=== PATIENT | male | born 1960 | race Two or more races ===

== ENCOUNTER 2022-10-06 10:47 | Outpatient (REF) | payer OTHER, SELFPAY ==
[2022-10-06 11:08] LABS: MANUAL DIFF FLAG NO
[2022-10-06 11:43] LABS: Basophils Percent Auto 0.2 % (0-2); Eosinophils Absolute Auto 0.2 X10*3/uL (0.0-0.4); Eosinophils Percent Auto 4.3 % (0-4); Hematocrit 41.6 % (42.0-52.0); Hemoglobin 13.7 g/dl (14.0-18.0); Imm Gran Abs Auto 0.05 X10*3/uL (0.00-0.03); Imm Gran Pct Auto 0.9 % (0.0-0.4); Lymphocytes Absolute Auto 2.1 X10*3/uL (1.2-4.9); Lymphocytes Percent Auto 36.9 % (20-40); Mean Corpuscular HGB Conc 32.9 g/dl (31.0-36.0); Mean Corpuscular Hemoglobin 30.4 pg (27.0-33.0); Mean Corpuscular Volume 92.4 fL (80.0-98.0); Mean Platelet Volume 11.9 fL (9.4-12.4); Monocytes Absolute Auto 0.5 X10*3/uL (0.1-1.2); Monocytes Percent Auto 9.2 % (2-11); Neutrophils Absolute Auto 2.7 x10*3/uL (2.0-8.3); Neutrophils Percent Auto 48.5 % (45-73); Platelet Count 202 X10*3/uL (160-400); Red Cell Distribution Width 11.9 % (11.0-16.0); White Blood Count 5.6 X10*3/uL (4.8-10.8)
[2022-10-06 11:49] LABS: Estimated Average Glucose 134 mg/dL; Hemoglobin A1c % 6.3 %
[2022-10-06 12:33] LABS: Appearance Urine Clear; Color Urine Yellow; Glucose Urine UA Negative (Negative); Leukocyte Esterase Urine Negative (Negative); Nitrite Urine Negative (Negative); Specific Gravity - Urine 1.015 (1.005-1.025); Urine Blood Negative (Negative); Urine Ketones Negative (Negative); Urine Protein Trace mg/dL (Neg-Trace)
[2022-10-06 13:17] LABS: Creatinine Urine 69.19 mg/dL; Microalbum/Creatinine Ratio Ur 144.5 ug/mg cr
[2022-10-06 16:46] LABS: Alanine Aminotransferase 18 U/L (0-40); Albumin Level 4.4 g/dL (3.5-5.0); Alkaline Phosphatase 73 U/L (39-117); Anion Gap 16 (12-20); Aspartate Amino Transferase 25 U/L (5-37); Bilirubin Total 0.5 mg/dL (0.0-1.0); Blood Urea Nitrogen 17 mg/dL (9-16); Calcium 9.8 mg/dL (8.4-10.2); Carbon Dioxide 27 mmol/L (22-29); Chloride 99 mmol/L (96-108); Cholesterol 205 mg/dL; Estimated Glomerular Filt Rate > 60; Free T4 (Free Thyroxine) 0.84 ng/dL (0.71-1.85); Glucose Fasting 140 mg/dL (60-99); HDL Cholesterol 66 mg/dL; LDL Cholesterol Calculated 81 mg/dl; Sodium 137 mmol/L (135-145); Thyroid Stimulating Hormone 11.16 uIU/mL (0.32-4.0); Total Protein 6.9 g/dL (6.5-8.0); Triglycerides 290 mg/dL; Uric Acid 4.1 mg/dL (3.4-7.0); Vitamin D 25-OH Total 76.6 ng/mL (>30)
== END 2022-10-06 10:48 | disposition home or self-care (01) ==
LOC: HO.LAB 10:47
PROVIDERS: PCP Internal Medicine; Visit Provider Internal Medicine
DX: Z00.00 Encounter for general adult medical examination without abnormal findings (principal); Z12.5 Encounter for screening for malignant neoplasm of prostate; E11.9 Type 2 diabetes mellitus without complications; R30.0 Dysuria; M10.9 Gout, unspecified; E03.9 Hypothyroidism, unspecified; E78.00 Pure hypercholesterolemia, unspecified; E55.9 Vitamin D deficiency, unspecified
CPT/HCPCS: 36415; 80053; 80061; 81003; 82043; 82306; 83036; 84153; 84439; 84443; 84550; 85025

== ENCOUNTER 2023-04-12 12:42 | Outpatient (REF) | payer OTHER, SELFPAY ==
[2023-04-12 12:55] LABS: MANUAL DIFF FLAG NO
[2023-04-12 14:34] LABS: Basophils Percent Auto 0.5 % (0-2); Eosinophils Absolute Auto 0.2 X10*3/uL (0.0-0.4); Eosinophils Percent Auto 3.6 % (0-4); Hematocrit 43.5 % (42.0-52.0); Hemoglobin 14.3 g/dl (14.0-18.0); Imm Gran Abs Auto 0.01 X10*3/uL (0.00-0.03); Imm Gran Pct Auto 0.2 % (0.0-0.4); Lymphocytes Absolute Auto 1.4 X10*3/uL (1.2-4.9); Lymphocytes Percent Auto 24.4 % (20-40); Mean Corpuscular HGB Conc 32.9 g/dl (31.0-36.0); Mean Corpuscular Hemoglobin 29.9 pg (27.0-33.0); Mean Corpuscular Volume 90.8 fL (80.0-98.0); Mean Platelet Volume 13.4 fL (9.4-12.4); Monocytes Absolute Auto 0.4 X10*3/uL (0.1-1.2); Monocytes Percent Auto 7.3 % (2-11); Neutrophils Absolute Auto 3.8 x10*3/uL (2.0-8.3); Platelet Count 178 X10*3/uL (160-400); Red Blood Count 4.79 X10*6/uL (4.60-5.80); Red Cell Distribution Width 12.2 % (11.0-16.0); White Blood Count 5.9 X10*3/uL (4.8-10.8)
[2023-04-12 14:50] LABS: Appearance Urine Clear; Color Urine Yellow; Glucose Urine UA Negative (Negative); Leukocyte Esterase Urine Negative (Negative); Nitrite Urine Negative (Negative); Urine Blood Negative (Negative); Urine Ketones Negative (Negative); Urine Protein Trace mg/dL (Neg-Trace)
[2023-04-12 14:57] LABS: Estimated Average Glucose 134 mg/dL; Hemoglobin A1c % 6.3 %
[2023-04-12 15:28] LABS: Creatinine Urine 137.34 mg/dL; Microalbum/Creatinine Ratio Ur 51.6 ug/mg cr
[2023-04-12 15:37] LABS: Alanine Aminotransferase 16 U/L (0-40); Albumin Level 4.4 g/dL (3.5-5.0); Alkaline Phosphatase 77 U/L (39-117); Anion Gap 17 (12-20); Aspartate Amino Transferase 30 U/L (5-37); Bilirubin Total 0.9 mg/dL (0.0-1.0); Blood Urea Nitrogen 8 mg/dL (9-16); Calcium 9.7 mg/dL (8.4-10.2); Carbon Dioxide 22 mmol/L (22-29); Chloride 102 mmol/L (96-108); Cholesterol 173 mg/dL; Estimated Glomerular Filt Rate > 60; Glucose Fasting 181 mg/dL (60-99); HDL Cholesterol 73 mg/dL; LDL Cholesterol Calculated 44 mg/dl; Potassium 3.7 mmol/L (3.3-5.1); Sodium 137 mmol/L (135-145); Total Protein 7.4 g/dL (6.5-8.0); Triglycerides 284 mg/dL; Uric Acid 7.5 mg/dL (3.4-7.0)
[2023-04-12 15:48] LABS: Free T4 (Free Thyroxine) 0.88 ng/dL (0.71-1.85); Thyroid Stimulating Hormone 9.31 uIU/mL (0.32-4.0); Vitamin D 25-OH Total 78.4 ng/mL (>30)
== END 2023-04-12 12:43 | disposition home or self-care (01) ==
LOC: HO.LAB 12:42
PROVIDERS: PCP Internal Medicine; Visit Provider Internal Medicine
DX: E78.00 Pure hypercholesterolemia, unspecified (principal); E03.9 Hypothyroidism, unspecified; E11.9 Type 2 diabetes mellitus without complications; M10.9 Gout, unspecified; R30.0 Dysuria; E55.9 Vitamin D deficiency, unspecified; I10 Essential (primary) hypertension
CPT/HCPCS: 36415; 80053; 80061; 81003; 82043; 82306; 83036; 84439; 84443; 84550; 85025

== ENCOUNTER 2023-04-19 11:31 | Outpatient (REF) | payer OTHER, SELFPAY ==
--- NOTE | ~2023-04-19 | XR_ITS ---
EXAMINATION: XR SHOULDER, RIGHT CLINICAL INFORMATION: Right shoulder pain with tingling down arm. COMPARISON: None available. TECHNIQUE: AP external rotation, Grashey, scapular Y, and axillary views of the right shoulder. FINDINGS: There is no evidence of acute fracture or dislocation of the right shoulder. Minimal spurring inferior aspect of the glenohumeral joint is seen. Joint spaces maintained. No calcific tendinitis. There is some spurring about the acromioclavicular joint. No widening of the coracoclavicular space is seen. XR/XR shoulder RT min 2V IMPRESSION: No significant bony abnormality of the right shoulder identified.
== END 2023-04-19 11:32 | disposition home or self-care (01) ==
LOC: HO.XRAY 11:31
PROVIDERS: PCP Internal Medicine; Visit Provider Internal Medicine
DX: M25.511 Pain in right shoulder (principal); M75.41 Impingement syndrome of right shoulder
CPT/HCPCS: 73030

== ENCOUNTER 2023-05-19 13:44 | Outpatient (AMB) | payer OTHER, SELFPAY ==
--- NOTE | 2023-05-19 14:25 | A.OFFVIS_ITS ---
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 Patient reports that he has had ongoing pain since about July of last year. This pain started as a burning pain that starts in the neck and radiates down the arm and has numbness and tingling in his finger tips. He explains that he has lost all sensation of the fingertips where he cannot feel hot. He has taking tylenol, ibprofen which offer mild relief. He denies injury to the shoulder. Allergies No Known Allergies Allergy (Verified 04/15/23 15:06) HPI MEDICAL ASSISTANT FLOAT- Pain in right shoulder HPI Details Luis is a 62 year old Diabetic man who presents with ~10 months of burning pain & numbness in his right arm. He says in 07/2022 he began feeling a burning pain radiating from his neck down his right arm and into his hand. This pain has worsened over time, and he feels numbness throughout his arm and into his hand. He says he has numbness in the fingers of his right hand. He reports sproadic shaking in his hand, along with weakness, and he says he drops objects He now is feeling some burning pain in his back. [facility] Medical History Acquired hypothyroidism Diabetes mellitus Erectile dysfunction Gout Mixed hyperlipidemia Smoker Surgical History No pertinent past surgical history Social History (Updated 05/19/23 @ 14:37 by Naheed Alvarenga CMA) Housing: Apartment Patient Tobacco Use Status: Current someday Tobacco user Tobacco use type: Cigarette e-Cigarette/Vaping Use: Never Used service: Yes Current occupational status: unemployed Cognitive needs: No Hearing needs: No Vision needs: No Review of Systems Const All systems reviewed & are unremarkable except as noted in HPI and below Physical Exam Vital Signs: BMI result Body Mass Index 23.9 Const General: no acute distress, alert and awake Orientation/consciousness: patient oriented x3 HEENT Head: Yes normocephalic and Yes atraumatic Eyes EOM: EOMs intact bilaterally Resp Effort & Inspection: normal respiratory effort and able to speak in complete sentences Cardio Jugular venous distension: no JVD Skin General skin exam: turgor normal Rashes: no rashes Neuro General: patient oriented x3 Extrem Other: Right Shoulder: Full ROM Neg provocative tests Axial cervical spine TTP 5/5 strength bilateral UE although testing limited by pain Psych Appearance: grossly normal Affect: normal affect Attitude: cooperative Results Reviewed Results Reviewed: I personally reviewed relevant radiographs. Unremarkable right shoulder Assessment & Plan Assessment & Plan (1) Cervical radicular pain: Code(s): M54.12 - Radiculopathy, cervical region Plan: This is a 62 year old man with symptoms of cervical radiculopathy. He has a burning pain and numbness radiating from his neck down into his right hand since 07/2022. I ordered an MRI to evaluate his cervical spine. He will follow up when completed for review. (2) Diabetes mellitus: Code(s): E11.9 - Type 2 diabetes mellitus without complications Qualifiers: Diabetes mellitus complication status: without complication Diabetes mellitus group home insulin use: without group home use Diabetes mellitus type: type 2 Qualified Code(s): E11.9 - Type 2 diabetes mellitus without complications Plan Scribed for Dejuan Marcos MD by Patrick Jerome, medical program specialist, on 05/19/23 at 2:50 PM, EST. Orders: Orders MR cervical spine wo con 05/19/23 M54.12 - Radiculopathy, cervical region Coding Level of Care Code New Pt Level 4 (93412) Diagnoses Cervical radicular pain M54.12 Diabetes mellitus E11.9 Diabetes mellitus complication status: without complication Diabetes mellitus group home insulin use: without intermediate card tender use Diabetes mellitus type: type 2
[2023-05-19 14:37] VITALS: BMI 23.9
== END 2023-05-19 14:50 | disposition home or self-care (01) ==
PROVIDERS: PCP Internal Medicine; Visit Provider Orthopaedic Surgery
DX: M54.12 Radiculopathy, cervical region (principal)
CPT/HCPCS: 99204

== ENCOUNTER → 2023-05-19 13:44 | Outpatient (BNVA) | payer OTHER, SELFPAY | PROVIDERS: PCP Internal Medicine; Visit Provider Orthopaedic Surgery | DX: M54.12 Radiculopathy, cervical region (principal); E11.9 Type 2 diabetes mellitus without complications | CPT/HCPCS: 99202 ==

== ENCOUNTER 2023-07-08 12:53 | Outpatient (REF) | payer OTHER, SELFPAY ==
--- NOTE | ~2023-07-08 | MR_ITS ---
EXAMINATION: MR CERVICAL SPINE WITHOUT CONTRAST CLINICAL INFORMATION: 62 year old with self-reported neck and right shoulder and arm pain with burning in the arm. Radiculopathy, cervical region. COMPARISON: None available. TECHNIQUE: MRI of the cervical spine was obtained using routine sequences without contrast. FINDINGS: Alignment: Trace anterolisthesis at C3-C4 and 2 mm of anterolisthesis at C5-C6. Lordotic curvature is maintained. Craniocervical Junction/C1-C2 Articulations: Intact and aligned. Small effusions at the atlanto-occipital joints bilaterally and left C1-C2 articulation, which are nonspecific findings. Visualized Intracranial Structures: Within normal limits. Vertebral Bodies: There is mild chronic loss of height of the C5 vertebral body anteriorly. Otherwise vertebral body heights are well maintained. Disc Spaces and Endplates: Zoaehkfv-tk-hsdzla disc space height loss is noted at C6-C7 with intradiscal degenerative signal changes and mild spondylosis. Intradiscal T2 hyperintensity at this level is likely secondary to degenerative changes versus spondyloarthropathy. Remaining intervertebral disc space heights are well maintained with diffuse disc desiccation between C2-C3 and C5-C6 inclusive. Minor degrees of anterior marginal endplate spurring are noted at C4-C5 and C5-C6. Bone Marrow: There is bone marrow edema within the C6 vertebral body with marrow edema along the superior endplate of C7. These findings could reflect type I degenerative endplate changes. Cannot exclude spondyloarthritis. There is subchondral bone marrow edema within the left C5 articulating facet, likely secondary to facet arthropathy. C2-C3: No disc herniation or canal stenosis and no significant DJD or neural foraminal stenosis. C3-C4: Slight anterolisthesis with small disc osteophyte complex and mild flattening of the central dural sac. No cord impingement or canal stenosis. There is uncovertebral spurring, left more than right with predominately left-sided facet arthropathy, with moderate left-sided neural foraminal stenosis. C4-C5: Shallow central disc protrusion with mild indentation of the ventral thecal sac without cord impingement or canal stenosis. Moderate bilateral facet arthrosis is noted with mild bilateral uncinate process spurring. There is moderate right and mild left-sided neural foraminal stenosis. C5-C6: Anterolisthesis is noted with small central disc protrusion with unroofing of the posterior disc margin and flattening of the ventral dural sac without cord impingement or significant canal stenosis. There is uncovertebral spurring bilaterally, with gtkcjoui-an-lqmcqy bilateral facet arthropathy, with subchondral cyst formation on both sides of the left facet joint. Jeamarin-qz-gswgcg right and moderate left-sided neural foraminal stenosis noted. C6-C7: Broad-based disc osteophyte complex and small superimposed central disc protrusion with mild indentation of the ventral thecal sac without cord impingement or canal stenosis. Bilateral uncovertebral spurring is noted with ligamentum flavum thickening and [id number]-rm-bbovtmpq bilateral facet arthropathy. Mzakybmr-tk-xzmfuf right and moderate left-sided neural foraminal stenosis noted. C7-T1: No disc herniation or canal stenosis. Minor facet arthrosis bilaterally without neural foraminal stenosis. Spinal Cord: The cervical and visualized upper thoracic spinal cord is normal in morphology, caliber and signal intensity throughout. Extracranial Soft Tissues: Multiple suprahyoid lymph nodes are seen bilaterally with the largest of these measuring 1.2 x 0.8 cm in the left IJ chain and on the right measuring 1.1 x 0.8 cm in the right IJ chain. Lymph node on the left appears mildly enlarged. Follow up as per clinical indications. Signal voids are seen in the visualized major arterial and venous structures. MR/MR cervical spine wo con IMPRESSION: 1. Mild anterolisthesis at C5-C6 and trace anterolisthesis at C3-C4 with discogenic degenerative changes and spondylosis at C6-C7. Cannot exclude an inflammatory spondyloarthropathy at C6-C7. Correlate with serum inflammatory markers and CBC. 2. Multilevel small central disc protrusions and disc osteophyte complexes without spinal cord impingement or significant spinal canal stenosis. 3. Multilevel DJD as described above, with multilevel bilateral neural foraminal stenosis, most apparent at C5-C6 and C6-C7 as detailed above. 4. Mildly enlarged suprahyoid lymph node on the left as described above, which is nonspecific. Follow up as per clinical indications.
== END 2023-07-08 12:54 | disposition home or self-care (01) ==
LOC: HO.MRI 12:53
PROVIDERS: PCP Internal Medicine; Visit Provider Orthopaedic Surgery
DX: M54.12 Radiculopathy, cervical region (principal)
CPT/HCPCS: 72141

== ENCOUNTER 2023-07-19 11:23 | Outpatient (REF) | payer OTHER, SELFPAY ==
[2023-07-19 11:47] LABS: MANUAL DIFF FLAG NO
[2023-07-19 13:06] LABS: Basophils Percent Auto 0.6 % (0-2); Eosinophils Absolute Auto 0.2 X10*3/uL (0.0-0.4); Eosinophils Percent Auto 3.5 % (0-4); Hematocrit 43.9 % (42.0-52.0); Hemoglobin 14.3 g/dl (14.0-18.0); Imm Gran Abs Auto 0.03 X10*3/uL (0.00-0.03); Imm Gran Pct Auto 0.4 % (0.0-0.4); Lymphocytes Absolute Auto 1.7 X10*3/uL (1.2-4.9); Lymphocytes Percent Auto 25.3 % (20-40); Mean Corpuscular HGB Conc 32.6 g/dl (31.0-36.0); Mean Corpuscular Hemoglobin 30.6 pg (27.0-33.0); Mean Platelet Volume 13.1 fL (9.4-12.4); Monocytes Absolute Auto 0.5 X10*3/uL (0.1-1.2); Monocytes Percent Auto 7.9 % (2-11); Neutrophils Absolute Auto 4.2 x10*3/uL (2.0-8.3); Neutrophils Percent Auto 62.3 % (45-73); Platelet Count 148 X10*3/uL (160-400); Red Blood Count 4.67 X10*6/uL (4.60-5.80); Red Cell Distribution Width 12.5 % (11.0-16.0); White Blood Count 6.8 X10*3/uL (4.8-10.8)
[2023-07-19 13:15] LABS: Estimated Average Glucose 146 mg/dL; Hemoglobin A1c % 6.7 % (<6.0)
[2023-07-19 13:40] LABS: Appearance Urine Clear; Color Urine Yellow; Glucose Urine UA Negative (Negative); Leukocyte Esterase Urine Negative (Negative); Nitrite Urine Negative (Negative); Specific Gravity - Urine <= 1.005 (1.005-1.025); Urine Blood Negative (Negative); Urine Ketones Negative (Negative); Urine Protein Negative (Neg-Trace)
[2023-07-19 13:55] LABS: Creatinine Urine 17.61 mg/dL; Microalbumin Urine < 5.0 mg/L
[2023-07-19 14:17] LABS: Alanine Aminotransferase 16 U/L (0-40); Albumin Level 4.6 g/dL (3.5-5.0); Alkaline Phosphatase 72 U/L (39-117); Anion Gap 12 (12-20); Aspartate Amino Transferase 28 U/L (5-37); Bilirubin Total 0.6 mg/dL (0.0-1.0); Blood Urea Nitrogen 12 mg/dL (9-16); Carbon Dioxide 28 mmol/L (22-29); Chloride 100 mmol/L (96-108); Cholesterol 172 mg/dL (<200); Estimated Glomerular Filt Rate > 60; Glucose Fasting 145 mg/dL (60-99); HDL Cholesterol 70 mg/dL (>40); LDL Cholesterol Calculated 57 mg/dL (<100); Potassium 4.3 mmol/L (3.3-5.1); Sodium 136 mmol/L (135-145); Thyroid Stimulating Hormone 5.74 uIU/mL (0.32-4.0); Total Protein 7.7 g/dL (6.5-8.0); Triglycerides 225 mg/dL (<150); Uric Acid 3.9 mg/dL (3.4-7.0); Vitamin D 25-OH Total 97.3 ng/mL (>30)
[2023-07-19 14:30] LABS: Folate 19.2 ng/mL (> or = 4.0); Vitamin B12 467 pg/mL (200-900)
== END 2023-07-19 11:24 | disposition home or self-care (01) ==
LOC: HO.LAB 11:23
PROVIDERS: PCP Internal Medicine; Visit Provider Internal Medicine
DX: E03.9 Hypothyroidism, unspecified (principal); M10.9 Gout, unspecified; E53.8 Deficiency of other specified B group vitamins; R30.0 Dysuria; E55.9 Vitamin D deficiency, unspecified; E11.9 Type 2 diabetes mellitus without complications; E78.00 Pure hypercholesterolemia, unspecified; I10 Essential (primary) hypertension
CPT/HCPCS: 36415; 80053; 80061; 81003; 82306; 82570; 82607; 82746; 83036; 84439; 84443; 84550; 85025

== ENCOUNTER 2023-07-22 13:51 | Outpatient (AMB) | payer OTHER, SELFPAY ==
[2023-07-22 13:57] VITALS: BP 128/90; PULSE 97; O2SAT 97; BMI 27.2
--- NOTE | 2023-07-22 13:57 | MHC.PC.OV ---
Vital Signs 07/22/23 13:57 07/22/23 14:52 Height 5 ft 3 in Weight 153 lb 6 oz BMI 27.2 BP 128/90 H 160/90 H Blood Pressure Location Lt brachial Lt brachial Position Sitting Sitting Pulse 97 Pulse Source Pulse Oximeter Pulse Oximetry (%) 97 Oxygen Delivery Method Room Air Intake Visit Reasons: [facility] f/u International Marketing Manager Required: No Accompanied by: Self / Same As Patient Allergies No Known Allergies Allergy (Verified 07/22/23 14:29) Medication List - Last Reconciled 07/22/23 by Balwinder Roth MD allopurinol 300 mg PO DAILY ibuprofen 600 mg PO DAILY PRN levothyroxine 50 mcg PO DAILY 90 days metformin 500 mg PO BID sildenafil 100 mg PO DAILY PRN Tobacco use date assessed: 07/22/23 Dental Screening Dental Screen Date: 07/22/23 Did you have a dental visit in the last 12 months?: Yes Did you have a dental problem in the last 6 months where you did not have access to dental care?: No Was dental information given to patient?: Patient has dentist [facility] HPI Details Patient comes in today for her follow up visit States that he feels okay He denies any headaches or dizziness Denies any chest pains, no SOB No nausea/vomiting, no abdominal pain No change in bowel habits noted Recalls that he was told when he was at his dentist's office a couple of weeks ago that his blood pressure was high so they had to reschedule his appointment then He is currently NOT taking any medication for his blood pressure and is wondering why it is running high Needs his Sildenafil Rx refilled and printed out as he tends to shop around for it with a toy designer's coupon to get a better knight since his insurance does not cover the Rx Had his follow up labs done a few days ago - to discuss his results [facility] Medical History Mixed hyperlipidemia Smoker Erectile dysfunction Gout Acquired hypothyroidism Diabetes mellitus Surgical History No pertinent past surgical history Social History Housing: Apartment Patient Tobacco Use Status: Current someday Tobacco user Tobacco use type: Cigarette e-Cigarette/Vaping Use: Never Used service: Yes Current occupational status: unemployed Cognitive needs: No Hearing needs: No Vision needs: No Questionnaire PHQ-9 Over the last 2 weeks, how often have you been bothered by any of the following problems? 1. Little interest or pleasure in doing things: not at all 2. Feeling down, depressed, or hopeless: not at all 3. Trouble falling or staying asleep, or sleeping too much: not at all 4. Feeling tired or having little energy: not at all 5. Poor appetite or overeating: not at all 6. Feeling bad about yourself - or that you are a failure or have let yourself or your family down: not at all 7. Trouble concentrating on things, such as reading the newspaper or watching television: not at all 8. Moving or speaking so slowly that other people could have noticed. Or the opposite - being so fidgety or restless that you have been moving around a lot more than usual: not at all 9. Thoughts that you would be better off or of hurting yourself in some way: not at all Total score: 0 Depression Screening Interpretation: Negative [id number] - PHQ-9 Billing: Yes Source: Developed by Drs. Radames Swanson, Tiffany Landry, Librado Rincon and colleagues, with an educational jesus from [employer]. Thrive Questionnaire Date Thrive assessed: 07/22/23 I am a: Patient What is your living situation today?: I have a steady place to live Within the past 12 months, did the food you bought not last and you didn't have the money to get more?: Never true Within the past 12 months, did you worry whether your food would run out before you got money to buy more?: Never true Do you have trouble paying for medicines?: No Do you have trouble getting transportation to medical appointments?: No Do you have trouble paying your heating and electricity bill?: No Do you have trouble taking care of your child, family member or friend?: No Do you have trouble with day-to-day activities such as bathing, preparing meals, shopping, managing finances, etc.?: No Are you currently unemployed and looking for a job?: No Are you interested in more education?: No Please select the resources that you would like help with: None Currently or been in a relationship where the following occur: no concerns reported AUDIT C Alcohol Use Questionnaire (AUDIT-C) 1. How often do you have a drink containing alcohol?: Never 3. How often do you have six or more drinks on one occasion?: Never Total Score: 0 Score Reviewed/Action Taken: Yes DORCAS-7 AMB Questionnaire DORCAS-7 Date DORCAS - 7 assessed: 07/22/23 Feeling nervous, anxious, or on edge: 0 = Not at all Not being able to stop or control worryin = Not at all Worrying too much about different things: 0 = Not at all Trouble relaxin = Not at all Being so restless that it is hard to sit still: 0 = Not at all Becoming easily annoyed or irritable: 0 = Not at all Feeling afraid as if something awful might happen: 0 = Not at all Total DORCAS-7 score (0-4 normal; 5-9 mild; 10-14 moderate; 15-21 severe): 0 Source: Developed by Drs. Radames Swanson, Tiffany Landry, Librado Rincon and colleagues, with an educational jesus from [employer]. Review of Systems Const Denies chills, Denies fatigue, Denies fever(s) and Denies headache(s) ENT Denies dysphagia, Denies dizziness, Denies otalgia, Denies headache(s), Denies odynophagia and Denies sore throat Card Denies chest pain, Denies palpitations and Denies dyspnea Resp Denies cough and Denies dyspnea GI Denies abdominal pain, Denies constipation, Denies dysphagia, Denies heartburn, Denies diarrhea, Denies nausea, Denies odynophagia and Denies vomiting Denies dysuria, Denies nocturia and Denies urinary frequency Musc Reports arthralgias (right shoulder) Skin/Breast Denies rash Neuro Denies dizziness and Denies headache(s) Endo Denies fatigue and Denies palpitations Physical exam (Primary Care) Vital Signs: Last Vital Signs Pulse 97 07/22/23 13:57 BP 128/90 H 07/22/23 13:57 Pulse Ox 97 07/22/23 13:57 Oxygen Delivery Method Room Air 07/22/23 13:57 BMI result Body Mass Index 27.2 Tobacco/Smoking Status: Tobacco use Status Tobacco use date assessed 07/22/23 07/22/23 14:02 Patient Tobacco Use Status Current someday Tobacco 07/22/23 14:02 Tobacco use type Cigarette 07/22/23 14:02 e-Cigarette/Vaping Use Never Used 07/22/23 14:02 PHQ-9: PHQ-9 Score PHQ-9: Total score 0 07/22/23 14:02 Depression Screening Interpretation: Negative Thrive Assessment: Date of Thrive Assessment Date Thrive assessed 07/22/23 07/22/23 14:02 Currently or been in a relationship where the following occur: no concerns reported Const General: no acute distress and alert HENMT Ears: TM's normal bilaterally and EAC's normal Throat: Yes posterior oropharynx normal and Yes tonsils normal (no TP congestion) Neck Neck: Yes no lymphadenopathy and Yes supple Resp Auscultation: clear to auscultation bilaterally, no rales and no wheezes Cardio Rate: regular rate Rhythm: regular rhythm Heart sounds: no murmurs GI Palpation (GI): Soft to palpation and nontender Auscultation: normal bowel sounds General: Yes no CVA tenderness Back/Spine/Pelvis Back: no CVA tenderness Skin Rashes: no rashes Extrem General: Yes no clubbing, cyanosis or edema Results Reviewed Results Reviewed: Laboratory Tests 07/19/23 07/19/23 07/19/23 11:46 11:46 11:46 WBC 6.8 Hgb 14.3 Hct 43.9 Plt Count 148 L Sodium 136 Potassium 4.3 Creatinine 0.86 Estimated GFR > 60 Fasting Glucose 145 H Hemoglobin A1c % 6.7 H Uric Acid 3.9 Calcium 10.0 AST 28 ALT 16 Triglycerides 225 H Cholesterol 172 LDL Cholesterol, Calc 57 HDL Cholesterol 70 Vitamin B12 467 25-OH Vitamin D Total 97.3 Folate 19.2 TSH 5.74 H Free T4 0.80 Ur Specific [place] Urine Protein Urine Glucose (UA) Urine Blood 07/19/23 07/19/23 11:50 11:50 WBC Hgb Hct Plt Count Sodium Potassium Creatinine Estimated GFR Fasting Glucose Hemoglobin A1c % Uric Acid Calcium AST ALT Triglycerides Cholesterol LDL Cholesterol, Calc HDL Cholesterol Vitamin B12 25-OH Vitamin D Total Folate TSH Free T4 Ur Specific [place] <= 1.005 Urine Protein Negative Urine Glucose (UA) Negative Urine Blood Negative Assessment and Plan Assessment & Plan (1) Diabetes mellitus: Code(s): E11.9 - Type 2 diabetes mellitus without complications Qualifiers: Diabetes mellitus type: type 2 Diabetes mellitus superintendent marine [employer] insulin use: without superintendent marine oil terminal use Diabetes mellitus complication status: without complication Qualified Code(s): E11.9 - Type 2 diabetes mellitus without complications Plan: HgbA1c appears to have increased slightly to 6.7% on his labs done a few days ago (was at 6.3% previously a few months ago) - goal is at least <7.0% Reinforced diabetic diet Continue Metformin 500 mg BID (2) Acquired hypothyroidism: Code(s): E03.9 - Hypothyroidism, unspecified Plan: TSH remains elevated on his labs done a few days ago but is much lower (and closer now to normal) than previous; free T4 level remains low normal Will continue him for now on Levothyroxine 50 mcg QD Will check his TFTs again in 4 months for follow up (3) Mixed hyperlipidemia: Code(s): E78.2 - Mixed hyperlipidemia Plan: Results of his labs done a few days ago reviewed and discussed with patient - advised that his serum triglyceride level is still elevated; the rest of his labs are all within normal range Reinforced low-cholesterol diet Will recheck his labs and fasting lipids in 4 months for follow-up (4) Gout: Code(s): M10.9 - Gout, unspecified Qualifiers: Gout site: unspecified site Gout etiology: unspecified cause Chronicity: unspecified Qualified Code(s): M10.9 - Gout, unspecified Plan: Reinforced low purine diet; states that he's had no acute flare ups of gout in a while now Serum uric acid level is now back to normal at 3.9 on his recent labs Continue Allopurinol 300 mg QD (5) Elevated blood pressure reading without diagnosis of hypertension: Code(s): R03.0 - Elevated blood-pressure reading, without diagnosis of hypertension Plan: His BP in the office today is high and repeat BP check came out with a higher BP reading of 160/90, but he already appears anxious at this time Have advised that we will have the nurse navigators reach out to him to help monitor his BP over the next few weeks to help us figure out if he does have HTN or not as he does not have any way of monitoring his BP and states that he does not know how He is currently not on any BP med Rx Reinforced low sodium diet (6) Right shoulder pain: Code(s): M25.511 - Pain in right shoulder Qualifiers: Chronicity: acute Qualified Code(s): M25.511 - Pain in right shoulder Plan: X-rays of the right shoulder done in March 2023 showed only (+) minimal spurring in the glenohumeral joint but is otherwise normal Was seen by orthopedics back in late April 2023 and was advised back then that his symptoms are more suggestive of a neck problem since they appear to originate in the neck He was sent for an MRI of the cervical spine for further evaluation and it looks like he never went for his MRI when it was scheduled a couple of weeks ago May continue taking OTC Ibuprofen PRN for pain for now Follow up with orthopedics as scheduled (7) Erectile dysfunction: Code(s): N52.9 - Male erectile dysfunction, unspecified Qualifiers: Erectile dysfunction type: unspecified Qualified Code(s): N52.9 - Male erectile dysfunction, unspecified Plan: Continue Sildenafil 100 mg QD PRN - Rx refilled per request (8) Smoker: Code(s): F17.200 - Nicotine dependence, unspecified, uncomplicated Plan: Counseled on smoking cessation - states that he is continuing to work on quitting smoking completely Plan Follow up in 4 months Orders: Orders Complete Blood Count Auto Diff 4 Months I10 - Essential (primary) hypertension Comprehensive [place]. Panel Fast 4 Months E78.00 - Pure hypercholesterolemia, unspecified Lipid Panel 4 Months E78.00 - Pure hypercholesterolemia, unspecified Thyroid Stimulating Hormone 4 Months E03.9 - Hypothyroidism, unspecified Free T4 (Free Thyroxine) 4 Months E03.9 - Hypothyroidism, unspecified Vitamin D 25-OH Total 4 Months E55.9 - Vitamin D deficiency, unspecified Hemoglobin A1c 4 Months E11.9 - Type 2 diabetes mellitus without complications Microalbumin, Random (w Creat) 4 Months E11.9 - Type 2 diabetes mellitus without complications UA CC w/rflx Micro + Cult 4 Months R30.0 - Dysuria Medications: Refilled sildenafil 100 mg PO DAILY PRN 7 tabs 1RF sexual activity sildenafil 100 mg PO DAILY PRN 7 tabs 1RF sexual activity Coding Level of Care Code Est Pt Level 4 (44278) Diagnoses Type 2 diabetes mellitus without complication, without long-term current use of insulin E11.9 Diabetes mellitus type: type 2 Diabetes mellitus detention insulin use: without superintendent marine oil [employer] use Diabetes mellitus complication status: without complication Acquired hypothyroidism E03.9 Mixed hyperlipidemia E78.2 Gout, unspecified cause, unspecified chronicity, unspecified site M10.9 Gout site: unspecified site Gout etiology: unspecified cause Chronicity: unspecified Elevated blood pressure reading without diagnosis of hypertension R03.0 Acute pain of right shoulder M25.511 Chronicity: acute Erectile dysfunction, unspecified erectile dysfunction type N52.9 Erectile dysfunction type: unspecified Smoker F17.200
[2023-07-22 14:52] VITALS: BP 160/90
== END 2023-07-22 15:03 | disposition home or self-care (01) ==
PROVIDERS: PCP Internal Medicine; Visit Provider Internal Medicine
DX: E11.9 Type 2 diabetes mellitus without complications (principal); E03.9 Hypothyroidism, unspecified; E78.2 Mixed hyperlipidemia; M10.9 Gout, unspecified; R03.0 Elevated blood-pressure reading, without diagnosis of hypertension; M25.511 Pain in right shoulder; N52.9 Male erectile dysfunction, unspecified; F17.200 Nicotine dependence, unspecified, uncomplicated
CPT/HCPCS: 99214

== ENCOUNTER 2023-11-22 09:57 | Outpatient (REF) | payer OTHER, SELFPAY ==
[2023-11-22 10:14] LABS: MANUAL DIFF FLAG NO
[2023-11-22 10:51] LABS: Basophils Percent Auto 0.5 % (0-2); Eosinophils Absolute Auto 0.3 X10*3/uL (0.0-0.4); Eosinophils Percent Auto 5.2 % (0-4); Hematocrit 42.8 % (42.0-52.0); Hemoglobin 13.9 g/dl (14.0-18.0); Imm Gran Abs Auto 0.02 X10*3/uL (0.00-0.03); Imm Gran Pct Auto 0.4 % (0.0-0.4); Lymphocytes Absolute Auto 1.9 X10*3/uL (1.2-4.9); Lymphocytes Percent Auto 34.1 % (20-40); Mean Corpuscular HGB Conc 32.5 g/dl (31.0-36.0); Mean Corpuscular Hemoglobin 30.6 pg (27.0-33.0); Mean Corpuscular Volume 94.3 fL (80.0-98.0); Mean Platelet Volume 13.3 fL (9.4-12.4); Monocytes Absolute Auto 0.5 X10*3/uL (0.1-1.2); Monocytes Percent Auto 8.5 % (2-11); Neutrophils Absolute Auto 2.8 x10*3/uL (2.0-8.3); Neutrophils Percent Auto 51.3 % (45-73); Platelet Count 135 X10*3/uL (160-400); Red Blood Count 4.54 X10*6/uL (4.60-5.80); Red Cell Distribution Width 12.5 % (11.0-16.0); White Blood Count 5.5 X10*3/uL (4.8-10.8)
[2023-11-22 10:52] LABS: Appearance Urine Clear; Color Urine Yellow; Glucose Urine UA Negative (Negative); Leukocyte Esterase Urine Negative (Negative); Nitrite Urine Negative (Negative); PH 6.5 (5.0-9.0); Specific Gravity - Urine <= 1.005 (1.005-1.025); Urine Blood Negative (Negative); Urine Ketones Negative (Negative); Urine Protein Negative (Neg-Trace)
[2023-11-22 10:59] LABS: Estimated Average Glucose 140 mg/dL; Hemoglobin A1c % 6.5 % (<6.0)
[2023-11-22 11:15] LABS: Creatinine Urine 15.96 mg/dL; Microalbum/Creatinine Ratio Ur 62.6 ug/mg cr (<30)
[2023-11-22 11:29] LABS: Alanine Aminotransferase 20 U/L (0-40); Albumin Level 4.2 g/dL (3.5-5.0); Alkaline Phosphatase 76 U/L (39-117); Anion Gap 13 (12-20); Aspartate Amino Transferase 30 U/L (5-37); Bilirubin Total 0.5 mg/dL (0.0-1.0); Blood Urea Nitrogen 10 mg/dL (9-16); Calcium 9.6 mg/dL (8.4-10.2); Carbon Dioxide 28 mmol/L (22-29); Chloride 101 mmol/L (96-108); Cholesterol 177 mg/dL (<200); Estimated Glomerular Filt Rate > 60; Glucose Fasting 108 mg/dL (60-99); HDL Cholesterol 75 mg/dL (>40); LDL Cholesterol Calculated 65 mg/dL (<100); Potassium 4.3 mmol/L (3.3-5.1); Sodium 138 mmol/L (135-145); Total Protein 7.2 g/dL (6.5-8.0); Triglycerides 188 mg/dL (<150)
[2023-11-22 11:47] LABS: Free T4 (Free Thyroxine) 0.81 ng/dL (0.71-1.85); Thyroid Stimulating Hormone 6.54 uIU/mL (0.32-4.0); Vitamin D 25-OH Total 63.2 ng/mL (>30)
== END 2023-11-22 09:58 | disposition home or self-care (01) ==
LOC: HO.LAB 09:57
PROVIDERS: PCP Internal Medicine; Visit Provider Internal Medicine
DX: I10 Essential (primary) hypertension (principal)
CPT/HCPCS: 36415; 80053; 80061; 81003; 82043; 82306; 82570; 83036; 84439; 84443; 85025

== ENCOUNTER 2023-11-25 14:47 | Outpatient (AMB) | payer OTHER, SELFPAY ==
[2023-11-25 14:59] VITALS: BP 132/84; PULSE 86; O2SAT 98; BMI 26.0
--- NOTE | 2023-11-25 14:59 | A.OFFPC_ITS ---
Vital Signs 11/25/23 14:59 Height 5 ft 3 in Weight 147 lb BMI 26.0 BP 132/84 Blood Pressure Location Lt brachial Position Sitting Pulse 86 Pulse Source Pulse Oximeter Pulse Oximetry (%) 98 Oxygen Delivery Method Room Air Intake Visit Reasons: 4 Months F/U Senior Medical Billing Specialist Required: No Accompanied by: Self / Same As Patient Allergies No Known Allergies Allergy (Verified 11/25/23 16:01) Medication List - Last Reconciled 11/25/23 by Balwinder Roth MD allopurinol 300 mg PO DAILY ibuprofen 600 mg PO DAILY PRN levothyroxine 50 mcg PO DAILY 90 days metformin 500 mg PO BID sildenafil 100 mg PO DAILY PRN Tobacco use date assessed: 11/25/23 Dental Screening Dental Screen Date: 11/25/23 Did you have a dental visit in the last 12 months?: Yes Did you have a dental problem in the last 6 months where you did not have access to dental care?: No Was dental information given to patient?: Patient has dentist HPI 4 Months F/U HPI Details Patient comes in today for his follow up visit States that he feels okay He denies any headaches or dizziness Denies any chest pains, no SOB No nausea/vomiting, no abdominal pain No change in bowel habits noted Needs his Sildenafil Rx refilled and sent over to [facility] on [facility] Had his follow up labs done a few days ago - to discuss his results [facility] Medical History (Updated 11/26/23 @ 05:03 by Balwinder Roth MD) Overweight (BMI 25.0-29.9) Mixed hyperlipidemia Smoker Erectile dysfunction Gout Acquired hypothyroidism Diabetes mellitus Surgical History No pertinent past surgical history Social History Housing: Apartment Patient Tobacco Use Status: Current someday Tobacco user Tobacco use type: Cigarette e-Cigarette/Vaping Use: Never Used service: Yes Current occupational status: unemployed Cognitive needs: No Hearing needs: No Vision needs: No Questionnaire PHQ-9 Over the last 2 weeks, how often have you been bothered by any of the following problems? 1. Little interest or pleasure in doing things: not at all 2. Feeling down, depressed, or hopeless: not at all 3. Trouble falling or staying asleep, or sleeping too much: not at all 4. Feeling tired or having little energy: not at all 5. Poor appetite or overeating: not at all 6. Feeling bad about yourself - or that you are a failure or have let yourself or your family down: not at all 7. Trouble concentrating on things, such as reading the newspaper or watching television: not at all 8. Moving or speaking so slowly that other people could have noticed. Or the opposite - being so fidgety or restless that you have been moving around a lot more than usual: not at all 9. Thoughts that you would be better off or of hurting yourself in some way: not at all Total score: 0 Depression Screening Interpretation: Negative Depression Screening Done: Yes 32432 - PHQ-9 Billing: Yes Source: Developed by Drs. Radames Swanson, Tiffany Landry, Librado Rincon and colleagues, with an educational jesus from [email or web address]. Thrive Questionnaire Date Thrive assessed: 11/25/23 I am a: Patient What is your living situation today?: I have a steady place to live Within the past 12 months, did the food you bought not last and you didn't have the money to get more?: Never true Within the past 12 months, did you worry whether your food would run out before you got money to buy more?: Never true Do you have trouble paying for medicines?: No Do you have trouble getting transportation to medical appointments?: No Do you have trouble paying your heating and electricity bill?: No Do you have trouble taking care of your child, family member or friend?: No Do you have trouble with day-to-day activities such as bathing, preparing meals, shopping, managing finances, etc.?: No Are you currently unemployed and looking for a job?: No Are you interested in more education?: No Please select the resources that you would like help with: None Currently or been in a relationship where the following occur: no concerns reported THRIVE Score: 0 AUDIT C Alcohol Use Questionnaire (AUDIT-C) 1. How often do you have a drink containing alcohol?: Never 3. How often do you have six or more drinks on one occasion?: Never Total Score: 0 Score Reviewed/Action Taken: Yes DORCAS-7 AMB Questionnaire DORCAS-7 Date DORCAS - 7 assessed: 11/25/23 Feeling nervous, anxious, or on edge: 0 = Not at all Not being able to stop or control worryin = Not at all Worrying too much about different things: 0 = Not at all Trouble relaxin = Not at all Being so restless that it is hard to sit still: 0 = Not at all Becoming easily annoyed or irritable: 0 = Not at all Feeling afraid as if something awful might happen: 0 = Not at all Total DORCAS-7 score (0-4 normal; 5-9 mild; 10-14 moderate; 15-21 severe): 0 Source: Developed by Drs. Radames Swanson, Tiffany Landry, Librado Rincon and colleagues, with an educational jesus from [email or web address]. Review of Systems Const Denies fatigue, Denies fever(s) and Denies headache(s) ENT Denies dysphagia, Denies dizziness, Denies otalgia, Denies headache(s), Denies odynophagia and Denies sore throat Card Denies chest pain, Denies palpitations and Denies dyspnea Resp Denies cough and Denies dyspnea GI Denies abdominal pain, Denies constipation, Denies dysphagia, Denies heartburn, Denies diarrhea, Denies nausea, Denies odynophagia and Denies vomiting Reports erectile dysfunction (Rx helps), Denies dysuria, Denies nocturia and Denies urinary frequency Musc Denies back pain and Reports arthralgias (right shoulder) Skin/Breast Denies rash Neuro Denies dizziness and Denies headache(s) Endo Denies fatigue and Denies palpitations Physical exam (Primary Care) Vital Signs: Last Vital Signs Pulse 86 11/25/23 14:59 BP 132/84 11/25/23 14:59 Pulse Ox 98 11/25/23 14:59 Oxygen Delivery Method Room Air 11/25/23 14:59 BMI result Body Mass Index 26.0 Tobacco/Smoking Status: Tobacco use Status Tobacco use date assessed 11/25/23 11/25/23 15:01 Patient Tobacco Use Status Current someday Tobacco 11/25/23 15:01 Tobacco use type Cigarette 11/25/23 15:01 e-Cigarette/Vaping Use Never Used 11/25/23 15:01 PHQ-9: PHQ-9 Score PHQ-9: Total score 0 11/25/23 16:06 Depression Screening Interpretation: Negative Thrive Assessment: Date of Thrive Assessment Date Thrive assessed 11/25/23 11/25/23 15:01 Currently or been in a relationship where the following occur: no concerns reported Const General: no acute distress and alert HENMT Ears: TM's normal bilaterally and EAC's normal Throat: Yes posterior oropharynx normal and Yes tonsils normal (no TP congestion) Neck Neck: Yes no lymphadenopathy and Yes supple Resp Auscultation: clear to auscultation bilaterally, no rales and no wheezes Cardio Rate: regular rate Rhythm: regular rhythm Heart sounds: no murmurs GI Palpation (GI): Soft to palpation and nontender Auscultation: normal bowel sounds General: Yes no CVA tenderness Back/Spine/Pelvis Back: no CVA tenderness Thoracic/Lumbar Spine: No lumbar spinal tenderness Skin Rashes: no rashes Extrem General: Yes no clubbing, cyanosis or edema Results Reviewed Results Reviewed: Laboratory Tests 11/22/23 11/22/23 10:10 10:13 WBC 5.5 Hgb 13.9 L Hct 42.8 Plt Count 135 L Sodium 138 Potassium 4.3 Creatinine 0.80 Estimated GFR > 60 Fasting Glucose 108 H Hemoglobin A1c % 6.5 H Calcium 9.6 AST 30 ALT 20 Triglycerides 188 H Cholesterol 177 LDL Cholesterol, Calc 65 HDL Cholesterol 75 25-OH Vitamin D Total 63.2 TSH 6.54 H Free T4 0.81 Ur Specific Weed <= 1.005 Urine Protein Negative Urine Glucose (UA) Negative Urine Blood Negative Urine Nitrite Negative Ur Leukocyte Esterase Negative Microalb/Creat Ratio 62.6 H Assessment and Plan Assessment & Plan (1) Diabetes mellitus: Code(s): E11.9 - Type 2 diabetes mellitus without complications Qualifiers: Diabetes mellitus complication status: without complication Diabetes mellitus tank terminal gauger insulin use: without chcf use Diabetes mellitus type: type 2 Qualified Code(s): E11.9 - Type 2 diabetes mellitus without complications Plan: His HgbA1c has improved slightly to 6.5% on his labs done a few days ago (was at 6.7% a few months ago) - goal is at least <7.0% Reinforced diabetic diet Continue Metformin 500 mg BID (2) Acquired hypothyroidism: Code(s): E03.9 - Hypothyroidism, unspecified Plan: TSH remains elevated on his labs done a few days ago; free T4 level remains low normal Continue Levothyroxine 50 mcg QD Will recheck his TFTs again in 4 months for follow up (3) Mixed hyperlipidemia: Code(s): E78.2 - Mixed hyperlipidemia Plan: Results of his labs done a few days ago reviewed and discussed with patient - advised that his serum triglyceride level is still slightly elevated; the rest of his labs are all within normal range Reinforced low-cholesterol diet Will recheck his labs and fasting lipids in 4 months for follow-up (4) Gout: Code(s): M10.9 - Gout, unspecified Qualifiers: Chronicity: unspecified Gout etiology: unspecified cause Gout site: unspecified site Qualified Code(s): M10.9 - Gout, unspecified Plan: Reinforced low purine diet; states that he's had no acute flare ups of gout in a while now Continue Allopurinol 300 mg QD (5) Elevated blood pressure reading without diagnosis of hypertension: Code(s): R03.0 - Elevated blood-pressure reading, without diagnosis of hypertension Plan: Reinforced low sodium diet His BP in the office today is better than previous Patient is reminded to continue monitoring his blood pressure regularly (6) Right shoulder pain: Code(s): M25.511 - Pain in right shoulder Qualifiers: Chronicity: acute Qualified Code(s): M25.511 - Pain in right shoulder Plan: X-rays of the right shoulder done in March 2023 showed only (+) minimal spurring in the glenohumeral joint but is otherwise normal Was seen by orthopedics back in late April 2023 and was advised back then that his symptoms are more suggestive of a neck problem since they appear to originate in the neck He was sent for an MRI of the cervical spine for further evaluation and he eventually had it done in June 2023 Cervical spine MRI revealed (+) mild anterolisthesis at C5-C6 and trace anterolisthesis at C3-C4 with discogenic degenerative changes and spondylosis at C6-C7; multilevel small central disc protrusions and disc osteophyte complexes without spinal cord impingement or significant spinal canal stenosis; 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, most apparent at C5-C6 and C6-C7 May continue taking OTC Ibuprofen PRN for pain for now Follow up with orthopedics as scheduled (7) Erectile dysfunction: Code(s): N52.9 - Male erectile dysfunction, unspecified Qualifiers: Erectile dysfunction type: unspecified Qualified Code(s): N52.9 - Male erectile dysfunction, unspecified Plan: Continue Sildenafil 100 mg QD PRN - Rx refilled per request (8) Smoker: Code(s): F17.200 - Nicotine dependence, unspecified, uncomplicated Plan: Counseled on smoking cessation - states that he is continuing to work on quitting smoking completely (9) Overweight (BMI 25.0-29.9): Code(s): E66.3 - Overweight Plan: Reinforced diet/exercise as tolerated/lose weight Plan Follow up in 4 months Orders: Orders Thyroid Stimulating Hormone 4 Months E03.9 - Hypothyroidism, unspecified Complete Blood Count Auto Diff 4 Months D64.9 - Anemia, unspecified Free T4 (Free Thyroxine) 4 Months E03.9 - Hypothyroidism, unspecified Uric Acid 4 Months M10.9 - Gout, unspecified Lipid Panel 4 Months E78.00 - Pure hypercholesterolemia, unspecified Comprehensive Elizabeth. Panel Fast 4 Months E78.00 - Pure hypercholesterolemia, unspecified Medications: Refilled sildenafil 100 mg PO DAILY PRN 7 tabs 1RF sexual activity Coding Level of Care Code Est Pt Level 4 (19931) Diagnoses Type 2 diabetes mellitus without complication, without long-term current use of insulin E11.9 Diabetes mellitus complication status: without complication Diabetes mellitus chcf insulin use: without tank terminal gauger use Diabetes mellitus type: type 2 Acquired hypothyroidism E03.9 Mixed hyperlipidemia E78.2 Gout, unspecified cause, unspecified chronicity, unspecified site M10.9 Chronicity: unspecified Gout etiology: unspecified cause Gout site: unspecified site Elevated blood pressure reading without diagnosis of hypertension R03.0 Acute pain of right shoulder M25.511 Chronicity: acute Erectile dysfunction, unspecified erectile dysfunction type N52.9 Erectile dysfunction type: unspecified Smoker F17.200 Overweight (BMI 25.0-29.9) E66.3
== END 2023-11-25 16:02 | disposition home or self-care (01) ==
PROVIDERS: PCP Internal Medicine; Visit Provider Internal Medicine
DX: E11.9 Type 2 diabetes mellitus without complications (principal); E03.9 Hypothyroidism, unspecified; E78.2 Mixed hyperlipidemia; M10.9 Gout, unspecified; R03.0 Elevated blood-pressure reading, without diagnosis of hypertension; M25.511 Pain in right shoulder; N52.9 Male erectile dysfunction, unspecified; F17.200 Nicotine dependence, unspecified, uncomplicated; E66.3 Overweight
CPT/HCPCS: 99214

== ENCOUNTER 2024-03-27 10:19 | Outpatient (REF) | payer OTHER, SELFPAY ==
[2024-03-27 10:47] LABS: MANUAL DIFF FLAG NO
[2024-03-27 11:15] LABS: Basophils Percent Auto 0.5 % (0-2); Eosinophils Absolute Auto 0.3 X10*3/uL (0.0-0.4); Eosinophils Percent Auto 4.9 % (0-4); Hematocrit 41.8 % (42.0-52.0); Hemoglobin 13.8 g/dl (14.0-18.0); Imm Gran Abs Auto 0.03 X10*3/uL (0.00-0.03); Imm Gran Pct Auto 0.5 % (0.0-0.4); Lymphocytes Absolute Auto 1.7 X10*3/uL (1.2-4.9); Mean Corpuscular Hemoglobin 30.6 pg (27.0-33.0); Mean Corpuscular Volume 92.7 fL (80.0-98.0); Monocytes Absolute Auto 0.5 X10*3/uL (0.1-1.2); Monocytes Percent Auto 8.4 % (2-11); Neutrophils Absolute Auto 3.5 x10*3/uL (2.0-8.3); Neutrophils Percent Auto 57.7 % (45-73); Platelet Count 146 X10*3/uL (160-400); Red Blood Count 4.51 X10*6/uL (4.60-5.80); White Blood Count 6.1 X10*3/uL (4.8-10.8)
[2024-03-27 11:56] LABS: Alanine Aminotransferase 15 U/L (0-40); Albumin Level 4.2 g/dL (3.5-5.0); Alkaline Phosphatase 68 U/L (39-117); Anion Gap 12 (12-20); Aspartate Amino Transferase 24 U/L (5-37); Bilirubin Total 0.4 mg/dL (0.0-1.0); Blood Urea Nitrogen 11 mg/dL (9-16); Calcium 9.5 mg/dL (8.4-10.2); Carbon Dioxide 26 mmol/L (22-29); Chloride 103 mmol/L (96-108); Cholesterol 191 mg/dL (<200); Estimated Glomerular Filt Rate > 60; Glucose Fasting 167 mg/dL (60-99); HDL Cholesterol 72 mg/dL (>40); LDL Cholesterol Calculated 74 mg/dL (<100); Potassium 4.1 mmol/L (3.3-5.1); Sodium 137 mmol/L (135-145); Triglycerides 226 mg/dL (<150); Uric Acid 3.6 mg/dL (3.4-7.0)
[2024-03-27 12:05] LABS: Free T4 (Free Thyroxine) 0.85 ng/dL (0.71-1.85); Thyroid Stimulating Hormone 3.53 uIU/mL (0.32-4.0)
== END 2024-03-27 10:20 | disposition home or self-care (01) ==
LOC: HO.LAB 10:19
PROVIDERS: PCP Internal Medicine; Visit Provider Internal Medicine
DX: M10.9 Gout, unspecified (principal); D64.9 Anemia, unspecified; E03.9 Hypothyroidism, unspecified; E78.00 Pure hypercholesterolemia, unspecified
CPT/HCPCS: 36415; 80053; 80061; 84439; 84443; 84550; 85025

== ENCOUNTER 2024-03-30 14:47 | Outpatient (AMB) | payer OTHER, SELFPAY ==
[2024-03-30 15:19] VITALS: BP 154/98; PULSE 84; O2SAT 98; BMI 25.7
--- NOTE | 2024-03-30 15:19 | A.OFFPC_ITS ---
Vital Signs 03/30/24 15:19 03/30/24 16:00 Height 5 ft 3 in Weight 145 lb BMI 25.7 BP 154/98 H 140/84 H Blood Pressure Location Lt brachial Lt brachial Position Sitting Sitting Pulse 84 Pulse Source Pulse Oximeter Pulse Oximetry (%) 98 Oxygen Delivery Method Room Air Intake Visit Reasons: hyperlipidemia, hypothyroidism, DM, ED Allergies No Known Allergies Allergy (Verified 03/30/24 15:46) Medication List - Last Reconciled 03/30/24 by Balwinder Roth MD allopurinol 300 mg PO DAILY ibuprofen 600 mg PO DAILY PRN levothyroxine 50 mcg PO DAILY 90 days metformin 500 mg PO BID sildenafil 100 mg PO DAILY PRN Tobacco use date assessed: 03/30/24 Dental Screening Dental Screen Date: 11/25/23 HPI hyperlipidemia, hypothyroidism, DM, ED HPI Details Patient comes in today for his follow up visit States that he feels okay He denies any headaches or dizziness Denies any chest pains, no SOB No nausea/vomiting, no abdominal pain No change in bowel habits noted States that he will need all of his Rx refilled He had his follow up labs done a few days ago - to discuss his results [facility] Medical History Overweight (BMI 25.0-29.9) Mixed hyperlipidemia Smoker Erectile dysfunction Gout Acquired hypothyroidism Diabetes mellitus Surgical History No pertinent past surgical history Social History Housing: Apartment Patient Tobacco Use Status: Current someday Tobacco user Tobacco use type: Cigarette e-Cigarette/Vaping Use: Never Used service: Yes Current occupational status: unemployed Cognitive needs: No Hearing needs: No Vision needs: No Questionnaire PHQ-9 Over the last 2 weeks, how often have you been bothered by any of the following problems? 1. Little interest or pleasure in doing things: not at all 2. Feeling down, depressed, or hopeless: not at all 3. Trouble falling or staying asleep, or sleeping too much: not at all 4. Feeling tired or having little energy: not at all 5. Poor appetite or overeating: not at all 6. Feeling bad about yourself - or that you are a failure or have let yourself or your family down: not at all 7. Trouble concentrating on things, such as reading the newspaper or watching television: not at all 8. Moving or speaking so slowly that other people could have noticed. Or the opposite - being so fidgety or restless that you have been moving around a lot more than usual: not at all 9. Thoughts that you would be better off or of hurting yourself in some way: not at all Total score: 0 Depression Screening Interpretation: Negative Depression Screening Done: Yes 78056 - PHQ-9 Billing: Yes Source: Developed by Drs. Radames Swanson, Tiffany Landry, Librado Rincon and colleagues, with an educational jesus from [employer]. Thrive Questionnaire Date Thrive assessed: 11/25/23 AUDIT C Alcohol Use Questionnaire (AUDIT-C) 1. How often do you have a drink containing alcohol?: Never 3. How often do you have six or more drinks on one occasion?: Never Total Score: 0 Score Reviewed/Action Taken: Yes DORCAS-7 AMB Questionnaire DORCAS-7 Date DORCAS - 7 assessed: 11/25/23 Source: Developed by Drs. Radames Swanson, Tiffany Landry, Librado Rincon and colleagues, with an educational jesus from [employer]. Review of Systems Const Denies chills, Denies fatigue, Denies fever(s) and Denies headache(s) ENT Denies dysphagia, Denies dizziness, Denies otalgia, Denies headache(s), Denies neck pain, Denies odynophagia and Denies sore throat Card Denies chest pain, Denies palpitations and Denies dyspnea Resp Denies cough and Denies dyspnea GI Denies abdominal pain, Denies constipation, Denies dysphagia, Denies heartburn, Denies diarrhea, Denies nausea, Denies odynophagia and Denies vomiting Reports erectile dysfunction (Rx helps), Denies dysuria, Denies nocturia and Denies urinary frequency Musc Denies back pain, Reports arthralgias (right shoulder) and Denies neck pain Skin/Breast Denies rash Neuro Denies dizziness and Denies headache(s) Endo Denies fatigue and Denies palpitations Physical exam (Primary Care) Vital Signs: Last Vital Signs Pulse 84 03/30/24 15:19 BP 154/98 H 03/30/24 15:19 Pulse Ox 98 03/30/24 15:19 Oxygen Delivery Method Room Air 03/30/24 15:19 BMI result Body Mass Index 25.7 Tobacco/Smoking Status: Tobacco use Status Tobacco use date assessed 03/30/24 03/30/24 15:27 Patient Tobacco Use Status Current someday Tobacco 03/30/24 15:20 Tobacco use type Cigarette 03/30/24 15:20 e-Cigarette/Vaping Use Never Used 03/30/24 15:20 PHQ-9: PHQ-9 Score PHQ-9: Total score 0 03/30/24 15:39 Depression Screening Interpretation: Negative Thrive Assessment: Date of Thrive Assessment Date Thrive assessed 11/25/23 03/30/24 15:20 Const General: no acute distress and alert HENMT Ears: TM's normal bilaterally and EAC's normal Throat: Yes posterior oropharynx normal and Yes tonsils normal (no TP congestion) Neck Neck: Yes no lymphadenopathy and Yes supple Thyroid: Thyroid normal Resp Auscultation: clear to auscultation bilaterally, no rales and no wheezes Cardio Rate: regular rate Rhythm: regular rhythm Heart sounds: no murmurs GI Palpation (GI): Soft to palpation and nontender Auscultation: normal bowel sounds General: Yes no CVA tenderness Back/Spine/Pelvis Back: no CVA tenderness Thoracic/Lumbar Spine: No lumbar spinal tenderness Skin Rashes: no rashes Extrem General: Yes no clubbing, cyanosis or edema Results AMB Hemoglobin A1c AMB Hemoglobin A1c 7.1 % Last Edit by Marisol Yousif CMA on 03/30/24 15 :40 Results Reviewed Results Reviewed: Laboratory Last Values Hgb A1c (Clinic) 7.1 % (4.0-6.0) H 03/30/24 15:22 Laboratory Tests 03/27/24 03/30/24 10:45 15:22 WBC 6.1 Hgb 13.8 L Hct 41.8 L Plt Count 146 L Sodium 137 Potassium 4.1 Creatinine 0.80 Estimated GFR > 60 Fasting Glucose 167 H Hgb A1c (Clinic) 7.1 H Uric Acid 3.6 AST 24 ALT 15 Triglycerides 226 H Cholesterol 191 LDL Cholesterol, Calc 74 HDL Cholesterol 72 TSH 3.53 Free T4 0.85 Assessment and Plan Assessment & Plan (1) Diabetes mellitus: Code(s): E11.9 - Type 2 diabetes mellitus without complications Qualifiers: Diabetes mellitus type: type 2 Diabetes mellitus exterminator insulin use: without exterminator use Diabetes mellitus complication status: without complication Qualified Code(s): E11.9 - Type 2 diabetes mellitus without complications Plan: His in-office HgbA1c done today is at 7.1% (his HgbA1c was at 6.5% a few months ago) - goal is at least <7.0% Reinforced diabetic diet Continue Metformin 500 mg BID (2) Acquired hypothyroidism: Code(s): E03.9 - Hypothyroidism, unspecified Plan: His TFTs were normal on his recent labs Continue Levothyroxine 50 mcg QD Will recheck his TFTs again in 4 months for follow up (3) Mixed hyperlipidemia: Code(s): E78.2 - Mixed hyperlipidemia Plan: Results of his labs done a few days ago reviewed and discussed with patient - he is advised that his cholesterol levels have all increased/declined slightly from previous Reinforced low-cholesterol diet Will recheck his labs and fasting lipids in 4 months for follow-up (4) Gout: Code(s): M10.9 - Gout, unspecified Qualifiers: Gout site: unspecified site Gout etiology: unspecified cause Chronicity: unspecified Qualified Code(s): M10.9 - Gout, unspecified Plan: Reinforced low purine diet; states that he's had no acute flare ups of gout in a while now Continue Allopurinol 300 mg QD (5) Elevated blood pressure reading without diagnosis of hypertension: Code(s): R03.0 - Elevated blood-pressure reading, without diagnosis of hypertension Plan: Reinforced low sodium diet His initial BP in the office today is again high at 154/98; it came down somewhat to 140/84 after a few minutes Patient is reminded to continue monitoring his blood pressure regularly (6) Right shoulder pain: Code(s): M25.511 - Pain in right shoulder Qualifiers: Chronicity: acute Qualified Code(s): M25.511 - Pain in right shoulder Plan: X-rays of the right shoulder done in March 2023 showed only (+) minimal spurring in the glenohumeral joint but is otherwise normal He was seen by orthopedics in late April 2023 and was advised back then that his symptoms are more suggestive of a neck problem since they appear to originate in the neck Cervical spine MRI done in June 2023 revealed (+) mild anterolisthesis at C5-C6 and trace anterolisthesis at C3-C4 with discogenic degenerative changes and spondylosis at C6-C7; multilevel small central disc protrusions and disc osteophyte complexes without spinal cord impingement or significant spinal canal stenosis; 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, most apparent at C5-C6 and C6-C7 May continue taking OTC Ibuprofen PRN for pain for now Follow up with orthopedics as scheduled (7) Erectile dysfunction: Code(s): N52.9 - Male erectile dysfunction, unspecified Qualifiers: Erectile dysfunction type: unspecified Qualified Code(s): N52.9 - Male erectile dysfunction, unspecified Plan: Continue Sildenafil 100 mg QD PRN (8) Smoker: Code(s): F17.200 - Nicotine dependence, unspecified, uncomplicated Plan: Counseled on smoking cessation - states that he is continuing to work on quitting smoking completely (9) Overweight (BMI 25.0-29.9): Code(s): E66.3 - Overweight Plan: Reinforced diet/exercise as tolerated/lose weight Plan Follow up in 4 months Orders: Orders AMB Hemoglobin A1c Today Z13.9 - Encounter for screening, unspecified Complete Blood Count Auto Diff 4 Months D64.9 - Anemia, unspecified Comprehensive Fischer. Panel Fast 4 Months E78.00 - Pure hypercholesterolemia, unspecified Lipid Panel 4 Months E78.00 - Pure hypercholesterolemia, unspecified Hemoglobin A1c 4 Months E11.9 - Type 2 diabetes mellitus without complications Microalbumin, Random (w Creat) 4 Months E11.9 - Type 2 diabetes mellitus without complications Free T4 (Free Thyroxine) 4 Months E03.9 - Hypothyroidism, unspecified Thyroid Stimulating Hormone 4 Months E03.9 - Hypothyroidism, unspecified Uric Acid 4 Months M10.9 - Gout, unspecified UA CC w/rflx Micro + Cult 4 Months R30.0 - Dysuria Vitamin D 25-OH Total 4 Months E55.9 - Vitamin D deficiency, unspecified Medications: Changed From allopurinol 300 mg PO DAILY 90 tabs 1RF M10.9 - Gout, unspecified To allopurinol 300 mg PO DAILY 90 days 90 tabs 3RF M10.9 - Gout, unspecified From metformin 500 mg PO BID 180 tabs 1RF E11.9 - Type 2 diabetes mellitus without complications To metformin 500 mg PO BID 90 days 180 tabs 1RF E11.9 - Type 2 diabetes mellitus without complications Refilled levothyroxine 50 mcg PO DAILY 90 days 90 tabs 1RF sildenafil 100 mg PO DAILY PRN 7 tabs 1RF sexual activity ibuprofen 600 mg PO DAILY PRN 30 tabs 2RF pain Coding Level of Care Code Est Pt Level 4 (12548) Diagnoses Type 2 diabetes mellitus without complication, without long-term current use of insulin E11.9 Diabetes mellitus type: type 2 Diabetes mellitus exterminator insulin use: without exterminator use Diabetes mellitus complication status: without complication Acquired hypothyroidism E03.9 Mixed hyperlipidemia E78.2 Gout, unspecified cause, unspecified chronicity, unspecified site M10.9 Gout site: unspecified site Gout etiology: unspecified cause Chronicity: unspecified Elevated blood pressure reading without diagnosis of hypertension R03.0 Acute pain of right shoulder M25.511 Chronicity: acute Erectile dysfunction, unspecified erectile dysfunction type N52.9 Erectile dysfunction type: unspecified Smoker F17.200 Overweight (BMI 25.0-29.9) E66.3
[2024-03-30 16:00] VITALS: BP 140/84
== END 2024-03-30 16:07 | disposition home or self-care (01) ==
PROVIDERS: PCP Internal Medicine; Visit Provider Internal Medicine
DX: E11.9 Type 2 diabetes mellitus without complications (principal); E03.9 Hypothyroidism, unspecified; E78.2 Mixed hyperlipidemia; M10.9 Gout, unspecified; R03.0 Elevated blood-pressure reading, without diagnosis of hypertension; M25.511 Pain in right shoulder; N52.9 Male erectile dysfunction, unspecified; F17.200 Nicotine dependence, unspecified, uncomplicated; E66.3 Overweight
CPT/HCPCS: 83036; 99214

== ENCOUNTER 2024-08-07 10:46 | Outpatient (REF) | payer OTHER, SELFPAY ==
[2024-08-07 11:11] LABS: MANUAL DIFF FLAG NO
[2024-08-07 11:46] LABS: Basophils Percent Auto 0.6 % (0-2); Eosinophils Absolute Auto 0.3 X10*3/uL (0.0-0.4); Eosinophils Percent Auto 5.5 % (0-4); Hematocrit 41.1 % (42.0-52.0); Hemoglobin 13.6 g/dl (14.0-18.0); Imm Gran Abs Auto 0.01 X10*3/uL (0.00-0.03); Imm Gran Pct Auto 0.2 % (0.0-0.4); Lymphocytes Absolute Auto 1.7 X10*3/uL (1.2-4.9); Lymphocytes Percent Auto 32.3 % (20-40); Mean Corpuscular HGB Conc 33.1 g/dl (31.0-36.0); Mean Corpuscular Volume 93.6 fL (80.0-98.0); Mean Platelet Volume 13.2 fL (9.4-12.4); Monocytes Absolute Auto 0.5 X10*3/uL (0.1-1.2); Monocytes Percent Auto 8.9 % (2-11); Neutrophils Absolute Auto 2.8 x10*3/uL (2.0-8.3); Neutrophils Percent Auto 52.5 % (45-73); Platelet Count 130 X10*3/uL (160-400); Red Blood Count 4.39 X10*6/uL (4.60-5.80); Red Cell Distribution Width 12.3 % (11.0-16.0); White Blood Count 5.3 X10*3/uL (4.8-10.8)
[2024-08-07 11:47] LABS: Appearance Urine Clear; Color Urine Yellow; Glucose Urine UA Negative (Negative); Leukocyte Esterase Urine Negative (Negative); Nitrite Urine Negative (Negative); Specific Gravity - Urine <= 1.005 (1.005-1.025); Urine Blood Negative (Negative); Urine Ketones Negative (Negative); Urine Protein Negative (Neg-Trace)
[2024-08-07 11:50] LABS: Estimated Average Glucose 148 mg/dL; Hemoglobin A1C 176.9335 umol/L; Hemoglobin A1c % 6.8 % (<6.0); Total Hemoglobin (HGBA1C) 3474.4881 umol/L
[2024-08-07 12:12] LABS: Creatinine Urine 15.59 mg/dL; Microalbum/Creatinine Ratio Ur 38.4 ug/mg cr (<30)
[2024-08-07 12:33] LABS: Alanine Aminotransferase 13 U/L (0-40); Albumin Level 4.1 g/dL (3.5-5.0); Alkaline Phosphatase 67 U/L (39-117); Anion Gap 12 (12-20); Aspartate Amino Transferase 23 U/L (5-37); Bilirubin Total 0.5 mg/dL (0.0-1.0); Blood Urea Nitrogen 9 mg/dL (9-16); Carbon Dioxide 26 mmol/L (22-29); Chloride 102 mmol/L (96-108); Cholesterol 163 mg/dL (<200); Estimated Glomerular Filt Rate > 60; Glucose Fasting 143 mg/dL (60-99); HDL Cholesterol 67 mg/dL (>40); LDL Cholesterol Calculated 60 mg/dL (<100); Potassium 3.9 mmol/L (3.3-5.1); Sodium 136 mmol/L (135-145); Total Protein 6.7 g/dL (6.5-8.0); Triglycerides 182 mg/dL (<150); Vitamin D 25-OH Total 79.6 ng/mL (>30)
[2024-08-07 12:53] LABS: Uric Acid 3.6 mg/dL (3.4-7.0)
== END 2024-08-07 10:47 | disposition home or self-care (01) ==
LOC: HO.LAB 10:46
PROVIDERS: PCP Internal Medicine; Visit Provider Internal Medicine
DX: D64.9 Anemia, unspecified (principal); E03.9 Hypothyroidism, unspecified; M10.9 Gout, unspecified; E78.00 Pure hypercholesterolemia, unspecified; E11.9 Type 2 diabetes mellitus without complications; R30.0 Dysuria; E55.9 Vitamin D deficiency, unspecified
CPT/HCPCS: 36415; 80053; 80061; 81003; 82043; 82306; 82570; 83036; 84439; 84443; 84550; 85025

== ENCOUNTER 2024-08-10 14:19 | Outpatient (AMB) | payer OTHER, SELFPAY ==
[2024-08-10 14:23] VITALS: BP 110/72; PULSE 70; O2SAT 96; BMI 25.6
--- NOTE | 2024-08-10 14:23 | A.OFFPC_ITS ---
Vital Signs 08/10/24 14:23 Height 5 ft 3 in Weight 144 lb 8 oz BMI 25.6 BP 110/72 Blood Pressure Location Lt brachial Position Sitting Pulse 70 Pulse Source Pulse Oximeter Pulse Oximetry (%) 96 Oxygen Delivery Method Room Air Intake Visit Reasons: [facility] f/u [employer] Required: No Accompanied by: Self / Same As Patient Allergies No Known Allergies Allergy (Verified 08/10/24 14:54) Medication List - Last Reconciled 08/10/24 by Balwinder Roth MD allopurinol 300 mg PO DAILY 90 days ibuprofen 600 mg PO DAILY PRN levothyroxine 50 mcg PO DAILY 90 days metformin 500 mg PO BID 90 days sildenafil 100 mg PO DAILY PRN Tobacco use date assessed: 08/10/24 Dental Screening Dental Screen Date: 08/10/24 Did you have a dental visit in the last 12 months?: Yes Did you have a dental problem in the last 6 months where you did not have access to dental care?: No Was dental information given to patient?: Patient has dentist HPI [facility] f/u HPI Details Patient comes in today for his follow up visit States that he feels okay He denies any headaches or dizziness Denies any chest pains, no SOB No nausea/vomiting, no abdominal pain No change in bowel habits noted Need a few of his Rx refilled He had his follow up labs done a few days ago - to discuss his results FOR[facility]LY [facility] Medical History (Updated 08/10/24 @ 17:40 by Balwinder Roth MD) Cervical disc disorder with radiculopathy Overweight (BMI 25.0-29.9) Mixed hyperlipidemia Smoker Erectile dysfunction Gout Acquired hypothyroidism Diabetes mellitus Surgical History No pertinent past surgical history Social History Housing: Apartment Patient Tobacco Use Status: Current someday Tobacco user Tobacco use type: Cigarette e-Cigarette/Vaping Use: Never Used service: Yes Current occupational status: unemployed Cognitive needs: No Hearing needs: No Vision needs: No Questionnaire PHQ-9 Over the last 2 weeks, how often have you been bothered by any of the following problems? 1. Little interest or pleasure in doing things: not at all 2. Feeling down, depressed, or hopeless: not at all 3. Trouble falling or staying asleep, or sleeping too much: not at all 4. Feeling tired or having little energy: not at all 5. Poor appetite or overeating: not at all 6. Feeling bad about yourself - or that you are a failure or have let yourself or your family down: not at all 7. Trouble concentrating on things, such as reading the newspaper or watching television: not at all 8. Moving or speaking so slowly that other people could have noticed. Or the opposite - being so fidgety or restless that you have been moving around a lot more than usual: not at all 9. Thoughts that you would be better off or of hurting yourself in some way: not at all Total score: 0 Depression Screening Interpretation: Negative Depression Screening Done: Yes 73109 - PHQ-9 Billing: Yes Source: Developed by Drs. Radames Swanson, Tiffany Landry, Librdao Rincon and colleagues, with an educational jesus from [employer]. Thrive Questionnaire Date Thrive assessed: 08/10/24 I am a: Patient What is your living situation today?: I have a steady place to live Within the past 12 months, did the food you bought not last and you didn't have the money to get more?: Never true Within the past 12 months, did you worry whether your food would run out before you got money to buy more?: Never true Do you have trouble paying for medicines?: No Do you have trouble getting transportation to medical appointments?: No Do you have trouble paying your heating and electricity bill?: No Do you have trouble taking care of your child, family member or friend?: No Do you have trouble with day-to-day activities such as bathing, preparing meals, shopping, managing finances, etc.?: No Are you currently unemployed and looking for a job?: Yes Are you interested in more education?: No Please select the resources that you would like help with: None Currently or been in a relationship where the following occur: No concerns reported THRIVE Score: 0 AUDIT C Alcohol Use Questionnaire (AUDIT-C) 1. How often do you have a drink containing alcohol?: Monthly or less 2. How many drinks containing alcohol do you have on a typical day when you are drinking?: 3 or 4 3. How often do you have six or more drinks on one occasion?: Less than monthly Total Score: 3 Score Reviewed/Action Taken: Yes DORCAS-7 AMB Questionnaire DORCAS-7 Date DORCAS - 7 assessed: 08/10/24 Feeling nervous, anxious, or on edge: 0 = Not at all Not being able to stop or control worryin = Not at all Worrying too much about different things: 0 = Not at all Trouble relaxin = Not at all Being so restless that it is hard to sit still: 0 = Not at all Becoming easily annoyed or irritable: 0 = Not at all Feeling afraid as if something awful might happen: 0 = Not at all Total DORCAS-7 score (0-4 normal; 5-9 mild; 10-14 moderate; 15-21 severe): 0 Source: Developed by Drs. Radames Swanson, Tiffany Landry, Librado Rincon and colleagues, with an educational jesus from [employer]. Review of Systems Const Denies chills, Denies fatigue, Denies fever(s) and Denies headache(s) ENT Denies dysphagia, Denies dizziness, Denies otalgia, Denies headache(s), Denies neck pain, Denies odynophagia and Denies sore throat Card Denies chest pain, Denies palpitations and Denies dyspnea Resp Denies cough and Denies dyspnea GI Denies abdominal pain, Denies constipation, Denies dysphagia, Denies heartburn, Denies diarrhea, Denies nausea, Denies odynophagia and Denies vomiting Reports erectile dysfunction (Rx helps), Denies dysuria, Denies nocturia and Denies urinary frequency Musc Denies back pain, Reports arthralgias (right shoulder) and Denies neck pain Skin/Breast Denies rash Neuro Denies dizziness and Denies headache(s) Endo Denies fatigue and Denies palpitations Physical exam (Primary Care) Vital Signs: Last Vital Signs Pulse 70 08/10/24 14:23 BP 110/72 08/10/24 14:23 Pulse Ox 96 08/10/24 14:23 Oxygen Delivery Method Room Air 08/10/24 14:23 BMI result Body Mass Index 25.6 Tobacco/Smoking Status: Tobacco use Status Tobacco use date assessed 08/10/24 08/10/24 14:25 Patient Tobacco Use Status Current someday Tobacco 08/10/24 14:25 Tobacco use type Cigarette 08/10/24 14:25 e-Cigarette/Vaping Use Never Used 08/10/24 14:25 PHQ-9: PHQ-9 Score PHQ-9: Total score 0 08/10/24 14:58 Depression Screening Interpretation: Negative Thrive Assessment: Date of Thrive Assessment Date Thrive assessed 08/10/24 08/10/24 14:25 Currently or been in a relationship where the following occur: No concerns reported Const General: no acute distress and alert HENMT Ears: TM's normal bilaterally and EAC's normal Throat: Yes posterior oropharynx normal and Yes tonsils normal (no TP congestion) Neck Neck: Yes no lymphadenopathy and Yes supple Thyroid: Thyroid normal Resp Auscultation: clear to auscultation bilaterally, no rales and no wheezes Cardio Rate: regular rate Rhythm: regular rhythm Heart sounds: no murmurs GI Palpation (GI): Soft to palpation and nontender Auscultation: normal bowel sounds General: Yes no CVA tenderness Back/Spine/Pelvis Back: no CVA tenderness Thoracic/Lumbar Spine: No lumbar spinal tenderness Skin Rashes: no rashes Extrem General: Yes no clubbing, cyanosis or edema Results Reviewed Results Reviewed: Laboratory Tests 08/07/24 08/07/24 11:08 11:10 WBC 5.3 Hgb 13.6 L Hct 41.1 L Plt Count 130 L Sodium 136 Potassium 3.9 Creatinine 0.78 Estimated GFR > 60 Fasting Glucose 143 H Hemoglobin A1c % 6.8 H Uric Acid 3.6 Calcium 9.0 AST 23 ALT 13 Triglycerides 182 H Cholesterol 163 LDL Cholesterol, Calc 60 HDL Cholesterol 67 25-OH Vitamin D Total 79.6 TSH 2.60 Free T4 0.90 Ur Specific [place] <= 1.005 Urine Protein Negative Urine Glucose (UA) Negative Urine Blood Negative Urine Nitrite Negative Ur Leukocyte Esterase Negative Urine Microalbumin 6.0 Microalb/Creat Ratio 38.4 H Coding Level of Care Code Est Pt Level 4 (56370) Diagnoses Type 2 diabetes mellitus without complication, without long-term current use of insulin E11.9 Diabetes mellitus type: type 2 Diabetes mellitus intermediate manager insulin use: without prison use Diabetes mellitus complication status: without complication Mixed hyperlipidemia E78.2 Elevated blood pressure reading without diagnosis of hypertension R03.0 Acquired hypothyroidism E03.9 Gout, unspecified cause, unspecified chronicity, unspecified site M10.9 Gout site: unspecified site Gout etiology: unspecified cause Chronicity: unspecified Cervical disc disorder with radiculopathy M50.10 Erectile dysfunction, unspecified erectile dysfunction type N52.9 Erectile dysfunction type: unspecified Smoker F17.200 Overweight (BMI 25.0-29.9) E66.3 Assessment & Plan Assessment & Plan (1) Diabetes mellitus: Code(s): E11.9 - Type 2 diabetes mellitus without complications Category: Medical Qualifiers: Diabetes mellitus type: type 2 Diabetes mellitus prison insulin use: without intermediate manager use Diabetes mellitus complication status: without complication Qualified Code(s): E11.9 - Type 2 diabetes mellitus without complications Plan: His HgbA1c was at 6.8% on his labs done a few days ago (his in-office HgbA1c was at 7.1% a few months ago) - goal is at least <7.0% Reinforced diabetic diet Continue Metformin 500 mg BID (2) Mixed hyperlipidemia: Code(s): E78.2 - Mixed hyperlipidemia Category: Medical Plan: Results of his labs done a few days ago reviewed and discussed with patient - he is advised that his cholesterol levels have all improved slightly from previous Reinforced low-cholesterol diet Will recheck his labs and fasting lipids in 4 months for follow-up (3) Elevated blood pressure reading without diagnosis of hypertension: Code(s): R03.0 - Elevated blood-pressure reading, without diagnosis of hypertension Category: Medical Plan: Reinforced low sodium diet His BP today is much better and has been running normal for a while now Patient is reminded to continue monitoring his blood pressure regularly (4) Acquired hypothyroidism: Code(s): E03.9 - Hypothyroidism, unspecified Category: Medical Plan: His TFTs were normal on his recent labs Continue Levothyroxine 50 mcg QD Will recheck his TFTs again in 4 months for follow up (5) Gout: Code(s): M10.9 - Gout, unspecified Category: Medical Qualifiers: Gout site: unspecified site Gout etiology: unspecified cause Chronicity: unspecified Qualified Code(s): M10.9 - Gout, unspecified Plan: Reinforced low purine diet; states that he's had no acute flare ups of gout in a while now Patient's serum uric acid level is normal on his recent labs Continue Allopurinol 300 mg QD (6) Cervical disc disorder with radiculopathy: Code(s): M50.10 - Cervical disc disorder with radiculopathy, unspecified cervical region Category: Medical Plan: Cervical spine MRI done in June 2023 revealed (+) mild anterolisthesis at C5-C6 and trace anterolisthesis at C3-C4 with discogenic degenerative changes and spondylosis at C6-C7, multilevel small central disc protrusions and disc osteophyte complexes without spinal cord impingement or significant spinal canal stenosis as well as 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, most apparent at C5-C6 and C6-C7 Right shoulder x-rays were unremarkable He was seen by orthopedics and was then referred to pain management Patient states that his shoulder symptoms have subsided a lot since and has not been bothering him as much lately and he prefers to hold off on seeing pain management or doing anything else for his neck and shoulder at this time (7) Erectile dysfunction: Code(s): N52.9 - Male erectile dysfunction, unspecified Category: Medical Qualifiers: Erectile dysfunction type: unspecified Qualified Code(s): N52.9 - Male erectile dysfunction, unspecified Plan: Continue Sildenafil 100 mg QD PRN (8) Smoker: Code(s): F17.200 - Nicotine dependence, unspecified, uncomplicated Category: Social Hx Plan: Counseled on smoking cessation - states that he is continuing to work on quitting smoking completely (9) Overweight (BMI 25.0-29.9): Code(s): E66.3 - Overweight Category: Medical Plan: Reinforced diet/exercise as tolerated/lose weight Plan Follow up in 4 months Orders: Orders Hemoglobin A1c 4 Months E11.9 - Type 2 diabetes mellitus without complications Free T4 (Free Thyroxine) 4 Months E03.9 - Hypothyroidism, unspecified Uric Acid 4 Months M10.9 - Gout, unspecified Vitamin D 25-OH Total 4 Months E55.9 - Vitamin D deficiency, unspecified Thyroid Stimulating Hormone 4 Months E03.9 - Hypothyroidism, unspecified Comprehensive [place]. Panel Fast 4 Months E78.00 - Pure hypercholesterolemia, unspecified Lipid Panel 4 Months E78.00 - Pure hypercholesterolemia, unspecified UA CC w/rflx Micro + Cult 4 Months R30.0 - Dysuria Microalbumin, Random (w Creat) 4 Months E11.9 - Type 2 diabetes mellitus without complications Medications: Refilled ibuprofen 600 mg PO DAILY PRN 30 tabs 2RF pain levothyroxine 50 mcg PO DAILY 90 days 90 tabs 1RF metformin 500 mg PO BID 90 days 180 tabs 1RF E11.9 - Type 2 diabetes mellitus without complications sildenafil 100 mg PO DAILY PRN 7 tabs 1RF sexual activity
== END 2024-08-10 15:05 | disposition home or self-care (01) ==
PROVIDERS: PCP Internal Medicine; Visit Provider Internal Medicine
DX: E11.9 Type 2 diabetes mellitus without complications (principal); E78.2 Mixed hyperlipidemia; R03.0 Elevated blood-pressure reading, without diagnosis of hypertension; E03.9 Hypothyroidism, unspecified; M10.9 Gout, unspecified; M50.10 Cervical disc disorder with radiculopathy, unspecified cervical region; N52.9 Male erectile dysfunction, unspecified; F17.200 Nicotine dependence, unspecified, uncomplicated; E66.3 Overweight

== ENCOUNTER → 2024-08-10 14:19 | Outpatient (BNVA) | payer OTHER, SELFPAY | PROVIDERS: PCP Internal Medicine; Visit Provider Internal Medicine | DX: E11.9 Type 2 diabetes mellitus without complications (principal); E78.2 Mixed hyperlipidemia; R03.0 Elevated blood-pressure reading, without diagnosis of hypertension; E03.9 Hypothyroidism, unspecified; M10.9 Gout, unspecified; M50.10 Cervical disc disorder with radiculopathy, unspecified cervical region; N52.9 Male erectile dysfunction, unspecified; E66.3 Overweight; Z68.25 Body mass index [BMI] 25.0-25.9, adult; F17.210 Nicotine dependence, cigarettes, uncomplicated; Z79.84 Long term (current) use of oral hypoglycemic drugs; Z79.899 Other long term (current) drug therapy | CPT/HCPCS: 96127; 99212 ==

== ENCOUNTER 2024-12-03 00:47 | Emergency (ER) | payer OTHER, SELFPAY ==
--- NOTE | ~2024-12-03 | CT_ITS ---
CLINICAL HISTORY: trauma CT head without contrast Comparison: None Findings: No intra-axial mass, midline shift, hydrocephalus, or acute hemorrhage. No significant atrophy-like change or white matter disease. There is no sinus or mastoid fluid. The orbits are within normal limits. There is no acute fracture. IMPRESSION: 1. No acute intracranial findings. This document has been electronically signed by: Jose Manuel Chamorro MD, PHD on 12/03/2024 04:08:07
--- NOTE | ~2024-12-03 | CT_ITS ---
CLINICAL HISTORY: trauma CT cervical spine without contrast Comparison: MR/SR - MR CERVICAL SPINE WO CON - 07/08/23 13:23 EDT Findings: There is straightening of the normal cervical lordosis with minimal grade 1 anterolisthesis of C5 on C6. Degenerative changes are moderate. No acute fractures or dislocations. Visualized intracranial contents are unremarkable. Soft tissues of the neck are normal. No consolidation or effusion at the lung apices. IMPRESSION: No acute findings. This document has been electronically signed by: Jose Manuel Chamorro MD, PHD on 12/03/2024 04:06:47
[2024-12-03 00:53] VITALS: BP 148/86; PULSE 90; O2SAT 98
[2024-12-03 01:00] VITALS: BP 140/81; PULSE 95; RESP 20; TEMP 36.7; O2SAT 98; BMI 23.6
--- NOTE | 2024-12-03 03:07 | ED_ITS ---
HPI - General Adult General Chief complaint: Wound/Laceration Stated complaint: fall/ ETOH Time Seen by Provider: 12/03/24 01:30 Source: patient Limitations: no limitations History of Present Illness ED Provider: Priscila Diallo PA-C HPI narrative: 63-year-old male with a history of diabetes, hypothyroidism, tobacco abuse, known cervical radiculopathy, who presents after fall. Patient admits to drinking alcohol overnight, subsequently tripped and fell falling backwards into a table. Patient has sustained lacerations to the right elbow. He denies striking his head. There was no loss consciousness, he is not on a blood thinner. The patient has no pain related complaints. He is eager to have his cervical collar removed. Related Data Previous Rx's ?Medication ?Instructions ?Recorded allopurinol 300 mg tablet 300 mg PO DAILY 90 days #90 tabs 03/30/24 ibuprofen 600 mg tablet 600 mg PO DAILY PRN pain #30 tabs 08/10/24 levothyroxine 50 mcg tablet 50 mcg PO DAILY 90 days #90 tabs 08/10/24 metformin 500 mg tablet 500 mg PO BID 90 days #180 tabs 08/10/24 sildenafil 100 mg tablet 100 mg PO DAILY PRN sexual 08/10/24 activity #7 tabs Allergies Allergy/AdvReac Type Severity Reaction Status Date / Time No Known Allergies Allergy Verified 12/03/24 01:44 Review of Systems Review of Systems: Yes all other systems are reviewed and are negative Constitutional: Constitutional: Denies fatigue, Denies fever(s) and Denies headache(s) ENT: Denies dizziness, Denies headache(s) and Denies neck pain Cardiovascular: Cardiovascular: Denies chest pain Gastrointestinal: Gastrointestinal: Denies abdominal pain, Denies nausea and Denies vomiting Musculoskeletal: Musculoskeletal: Denies back pain, Denies myalgias, Reports arthralgias, Denies joint swelling and Denies neck pain Neurologic: Denies dizziness and Denies headache(s) Endocrine: Endocrine: Denies fatigue PMF Past Medical History Attestation statement: The following information was validated with the patient. Medical History (Updated 12/03/24 @ 04:22 by JAG Crowley) Cervical disc disorder with radiculopathy Overweight (BMI 25.0-29.9) Mixed hyperlipidemia Smoker Erectile dysfunction Gout Acquired hypothyroidism Diabetes mellitus Surgical History No pertinent past surgical history Social History Social History Housing: Apartment Patient Tobacco Use Status: Current someday Tobacco user Tobacco use type: Cigarette e-Cigarette/Vaping Use: Never Used service: Yes Current occupational status: unemployed Cognitive needs: No Hearing needs: No Vision needs: No Physical Exam ED Vital Signs: Vital Signs - 24 hr 12/03/24 01:00 Temperature 98.1 F Pulse Rate 95 Respiratory Rate 20 Blood Pressure 140/81 H Pulse Oximetry 98 Oxygen Delivery Method Room Air BMI result Body Mass Index 23.6 Const Other: Alert well-appearing no evidence of head trauma Orientation/consciousness: patient oriented x3 HENMT Other: Alcohol halitosis Resp Effort & Inspection: normal respiratory effort Cardio Other: Normal peripheral perfusion Skin Other: Warm dry no rash Neuro General: patient oriented x3, no focal motor deficits and CN's II-XI intact bilaterally Extrem Other: Full flexion and extension of the right elbow Psych Other: Cooperative, pleasantly intoxicated Procedures Laceration Laceration 1: Site: upper extremity Side (If applicable): right Size (cm): 5 Description: irregular Depth: simple, single layer Local Anesthetic: lidocaine 1% Amount of anesthesia used (mL): 5 Pre-repair: irrigated extensively Skin layer closed with: nylon Size (cm): 3-0 Number of sutures: 10 Laceration 2: Site: upper extremity Side (If applicable): right Size (cm): 2 Description: linear Depth: simple, single layer Local Anesthetic: lidocaine 1% Amount of anesthesia used (mL): 2 Pre-repair: irrigated extensively Skin layer closed with: nylon Size (cm): 3-0 Number of sutures: 3 Laceration 3: Site: upper extremity Side (If applicable): right Size (cm): 1 Description: linear Depth: simple, single layer Local Anesthetic: lidocaine 1% Amount of anesthesia used (mL): 1 Pre-repair: irrigated extensively Skin layer closed with: nylon Size (cm): 3-0 Number of sutures: 2 Technique: simple, interrupted Medical Decision Making Medical Decision Making MDM Narrative: 63-year-old male with a history of diabetes, hypothyroidism, tobacco abuse, known cervical radiculopathy, who presents after fall. Patient admits to drinking alcohol overnight, subsequently tripped and fell falling backwards into a table. Patient has sustained lacerations to the right elbow. He denies striking his head. There was no loss consciousness, he is not on a blood thinner. The patient has no pain related complaints. He is eager to have his cervical collar removed. Problem: Diabetes History: Per patient I have considered the following differential diagnoses: Intracranial hemorrhage, cervical spine injury, fracture, dislocation, contusion, laceration Plan: The patient is not a reliable historian, he is intoxicated. We will be scanning his head and neck. He does not need x-rays of the elbow he has full range of motion no deformity. It is reassuring that he is not actively vomiting he is not altered, without neurologic deficits to suggest an intracranial hemorrhage. He also is not complaining of neck pain at this time. Patient does not know if his tetanus is up-to-date, we will booster now. I have independently reviewed the following tests: CT brain: IMPRESSION: 1. No acute intracranial findings. This document has been electronically signed by: Jose Manuel Chamorro MD, PHD on 12/03/2024 04:08:07 CT cervical spine:IMPRESSION: No acute findings. This document has been electronically signed by: Jose Manuel Chamorro MD, PHD on 12/03/2024 04:06:47 Discharge Plan Discharge Clinical Impression: Laceration of skin of right elbow Patient Disposition: Home, Self-Care Instructions: Laceration (ED) Additional Instructions: Fifteen stitches were used to repair your lacerations. See home care instructions. Keep the sites clean and dry. Do not submerge your arm in a pool or hot tub. The stitches can be removed in 7 days. You can return to the emergency department or follow up with your primary care provider. The CT scans of your head and neck were normal. Prescriptions: No Action allopurinol 300 mg tablet 300 mg PO DAILY 90 Days Qty: 90 3RF levothyroxine 50 mcg tablet 50 mcg PO DAILY 90 Days Qty: 90 1RF metformin 500 mg tablet 500 mg PO BID 90 Days Qty: 180 1RF sildenafil 100 mg tablet 100 mg PO DAILY PRN (Reason: sexual activity) Qty: 7 1RF ibuprofen 600 mg tablet 600 mg PO DAILY PRN (Reason: pain) Qty: 30 2RF Print Language: Turkmen
[2024-12-03 05:55] VITALS: BP 122/65; PULSE 89; RESP 16; TEMP 36.7; O2SAT 98
[2024-12-03 06:00] VITALS: BP 122/65; PULSE 89; RESP 16; TEMP 36.7; O2SAT 98
== END 2024-12-03 06:10 | disposition home or self-care (01) ==
PROVIDERS: Emergency Provider Emergency Medicine; PCP Internal Medicine
DX: S51.011A Laceration without foreign body of right elbow, initial encounter (principal); W01.190A Fall on same level from slipping, tripping and stumbling with subsequent striking against furniture, initial encounter; Y93.9 Activity, unspecified; Y92.9 Unspecified place or not applicable; Y99.9 Unspecified external cause status; F10.129 Alcohol abuse with intoxication, unspecified
CPT/HCPCS: 12004; 70450; 72125; 99284

== ENCOUNTER → 2024-12-03 01:53 | Outpatient (BNV) | payer OTHER, SELFPAY | PROVIDERS: Emergency Provider Emergency Medicine; PCP Internal Medicine; Visit Provider General Practice | DX: S09.90XA Unspecified injury of head, initial encounter (principal) | CPT/HCPCS: 70450; 72125 ==

== ENCOUNTER 2024-12-07 10:42 | Emergency (ER) | payer OTHER, SELFPAY ==
[2024-12-07 10:46] VITALS: BP 169/93; PULSE 90; RESP 16; TEMP 36.4; O2SAT 99; BMI 22.9
--- NOTE | 2024-12-07 11:26 | ED.WOUNDLAC ---
HPI - Wound/Laceration General Chief Complaint: Wound/Laceration Stated Complaint: check his stitches Time Seen by Provider: 12/07/24 10:58 Source: patient, RN notes reviewed and old records reviewed Mode of arrival: ambulatory Limitations: no limitations History of Present Illness ED Provider: Enedelia Shore PA-C HPI narrative: 63-year-old male with history of diabetes presents to the ER for evaluation of a wound check. He acquired several wounds to his right elbow after he fell backward onto glass, required several stitches to multiple lacerations. He states he is diabetic and wants to make sure there is no issues or infection. The stitches were placed 5 days ago, he was told to get them out in 7-10 days. He is not changed the dressing or visualize the wounds as they are in the back of the elbow. He reports minimal pain or discomfort, is able to fully flex and extend the elbow without any issues. Extremity Location: right: elbow Place: home Patient tetanus UTD: Yes Context: accidental Associated symptoms: none Treatments prior to arrival: bandage Related Data Previous Rx's ?Medication ?Instructions ?Recorded allopurinol 300 mg tablet 300 mg PO DAILY 90 days #90 tabs 03/30/24 ibuprofen 600 mg tablet 600 mg PO DAILY PRN pain #30 tabs 08/10/24 levothyroxine 50 mcg tablet 50 mcg PO DAILY 90 days #90 tabs 08/10/24 metformin 500 mg tablet 500 mg PO BID 90 days #180 tabs 08/10/24 sildenafil 100 mg tablet 100 mg PO DAILY PRN sexual 08/10/24 activity #7 tabs Allergies Allergy/AdvReac Type Severity Reaction Status Date / Time No Known Allergies Allergy Verified 12/07/24 10:51 Review of Systems Review of Systems: Yes all other systems are reviewed and are negative [facility] Past Medical History Medical History (Updated 12/07/24 @ 11:23 by JAG Christie) Cervical disc disorder with radiculopathy Overweight (BMI 25.0-29.9) Mixed hyperlipidemia Smoker Erectile dysfunction Gout Acquired hypothyroidism Diabetes mellitus Surgical History No pertinent past surgical history Social History Social History Housing: Apartment Alcohol intake: current Alcohol intake frequency: a few times a week Patient Tobacco Use Status: Current someday Tobacco user Tobacco use type: Cigarette e-Cigarette/Vaping Use: Never Used Advance Directives: No Advance Directives Information Provided: Yes service: Yes Current occupational status: unemployed Cognitive needs: No Hearing needs: No Vision needs: No Physical Exam Vital Signs: Vital Signs: Last Vital Signs Temp 97.5 F 12/07/24 10:46 Pulse 90 12/07/24 10:46 Resp 16 12/07/24 10:46 BP 169/93 H 12/07/24 10:46 Pulse Ox 99 12/07/24 10:46 O2 Del Method Room Air 12/07/24 10:46 BMI result Body Mass Index 22.9 Appearance: Alert. Oriented X3. No acute distress. HEENT: normal inspection CVS: Normal heart rate and rhythm. Pulses normal. Respiratory: No respiratory distress. Skin: Skin warm and dry. Normal skin color. Normal skin turgor. No rashes. Extremities: Right posterior elbow with multiple lacerations with sutures in place, no evidence of surrounding erythema, no induration, no drainage. No dehiscence. Full range motion of the elbow Neuro: Oriented X 3. Grossly normal, nonfocal Medical Decision Making Medical Decision Making MDM Narrative: 63-year-old male presents to the ER for evaluation of a wound check. He has several lacerations on the back of his elbow that required suture repair on Tuesday. Sutures have been in place for 5 days. They are not ready quite yet to be removed. There is no signs of a bacterial infection at this time. They are dry and intact. Area was cleansed with normal saline and a dry sterile dressing was applied. Additional supplies were provided to the patient to have daily dressing changes at home. Encouraged him to follow up with his doctor or come back to the ER for removal early next week. Stable for discharge home Differential Diagnosis Differential Diagnoses: The differential diagnosis associated with the presentation includes Appropriate wound healing, delayed wound healing, cellulitis, dehiscence External Record Review External record reviewed: Outpatient record and Prior outpatient labs Prescription Management I considered prescription management with: Antibiotic Chronic Conditions Patient?s care impacted by: Diabetes Critical Care Time Critical Care Time Critical Care Time: No Discharge Plan Discharge Clinical Impression: Healing wound Patient Disposition: Home, Self-Care Instructions: Care For Your Stitches (DC), Acute Wounds (DC) Additional Instructions: your wounds are healing appropriately change the dressing daily you can shower, briefly get wet then pat dry follow up early next week for stitches removal If you develop new or worsening symptoms call 911 or come back to the ER for further evaluation. Prescriptions: No Action allopurinol 300 mg tablet 300 mg PO DAILY 90 Days Qty: 90 3RF levothyroxine 50 mcg tablet 50 mcg PO DAILY 90 Days Qty: 90 1RF metformin 500 mg tablet 500 mg PO BID 90 Days Qty: 180 1RF sildenafil 100 mg tablet 100 mg PO DAILY PRN (Reason: sexual activity) Qty: 7 1RF ibuprofen 600 mg tablet 600 mg PO DAILY PRN (Reason: pain) Qty: 30 2RF Print Language: Occitan
--- OUTSIDE RECORDS SUMMARY | 2024-12-07 12:04 | XMS_ITS | Clinical Summary ---
Author Organization [facility] Address [address] [place] [address] Care Team Providers Care Solutions Manager Name Role Phone Provider, Conversion Juan Luis Varela MD Primary Care Prov ider Allergies No known active allergies Medications Medication Sig Dispensed Refills Start Date End Date Status metFORMIN (GLUCOPHAGE) 500 MG tablet TK 1 T PO BID 4 02/10/2018 Active lisinopril (PRINIVIL,ZeSTRIL) 10 MG tablet TK 1 T PO QD 3 12/16/2017 Active allopurinol (ZYLOPRIM) 300 MG tablet TK 1 T PO QD 5 02/10/2018 Active PAZEO 0.7 % ophthalmic solution INSTILL 1 GTT INTO OU QD 5 03/11/2018 Active Active Problems Problem Noted Date Diagnosed Date Special screening for malignant neoplasms, colon 03/10/2018 Overview (03/10/2018): Added automatically from request for surgery [id number] Family History Medical History Relation Name Comments Kidney disease Brother Kidney disease Sister Relation Name Status Comments Brother Sister Social History Tobacco Use Types Packs/Day Years Used Date Smoking Tobacco: Some Days Smokeless Tobacco: Never Comments:1-2 cigarettes per week Alcohol Use Standard Drinks/Week Comments Yes 12 (1 standard drink = 0.6 oz pu re alcohol) Sex and Gender Information Value Date Recorded Sex Assigned at Not on file Gender Identity Not on file Sexual Orientation Not on file Last Filed Vital Signs Vital Sign Reading Time Taken Comments Blood Pressure 141/67 03/17/2018 9:33 AM EDT Pulse 86 03/17/2018 9:33 AM EDT Temperature 36.6 ??C (97.8 ??F) 03/17/2018 8:03 AM ED T Respiratory Rate 18 03/17/2018 9:33 AM EDT Oxygen Saturation 99% 03/17/2018 9:33 AM EDT Inhaled Oxygen Concentration - - Weight 70.8 kg (156 lb) 03/17/2018 8:01 AM EDT Height 167.6 cm (5' 6 ) 03/17/2018 8:01 AM EDT Body Mass Index 25.18 03/17/2018 8:01 AM EDT Plan of Treatment Health Maintenance Due Date Last Done Comments Hepatitis C Virus Screening 1961 HIV Screening 1974 DTaP/Tdap/Td Vaccines (1 - Tdap) 1980 Pneumococcal Vaccines 50+ (1 of 1 - PCV) 2011 Zoster (Shingles) Vaccine (1 of 2) 2011 Influenza Vaccine 05/24/2024 11/26/2021 COVID-19 Vaccine ( - 2023-2 5 season) 2024 Colonoscopy 03/17/2028 03/17/2018 RSV Vaccine 60 years and old er and Patients (1 - 1-dose 75+ series) 2036 Hepatitis B Vaccines Aged Out No long er eligible based on patient's age to complete this topic Pneumococcal Vaccine: Pediat samuel (0-5 Years) and At-Risk Patients (6 to 49 Years) Aged Out No longer eligible b ased on patient's age to complete this topic Care Teams Solutions Manager Relationship Specialty Start Date End Date Juan Luis Balderas MD [address] [place] [id number] PCP - General Internal Medicine 10/10/17 ProviderDamir MD 10/20/10
[2024-12-07 12:30] VITALS: BP 169/93; PULSE 90; RESP 16; TEMP 36.4
== END 2024-12-07 13:06 | disposition home or self-care (01) ==
PROVIDERS: Emergency Provider Emergency Medicine; PCP Internal Medicine
DX: Z48.02 Encounter for removal of sutures (principal); F17.210 Nicotine dependence, cigarettes, uncomplicated
CPT/HCPCS: 99282; 99284

== ENCOUNTER 2024-12-11 10:03 | Outpatient (REF) | payer OTHER, SELFPAY ==
--- OUTSIDE RECORDS SUMMARY | 2024-12-11 10:58 | XMS_ITS | Clinical Summary ---
Author Organization [facility] Address [address] [place] [address] Care Team Providers Care Foot Worker Name Role Phone Provider, Conversion Juan Luis [...] (03/10/2018): Added automatically from request for surgery [id number] Family History Medical History Relation Name Comments [...] age to complete this topic Care Teams Foot Worker Relationship Specialty Start Date End Date Juan Luis Balderas MD [address] [place] [id number] PCP - General Internal Medicine 10/10/17 ProviderDamir MD 10/20/10
[2024-12-11 11:24] LABS: Appearance Urine Clear; Color Urine Yellow; Glucose Urine UA Negative (Negative); Leukocyte Esterase Urine Negative (Negative); Nitrite Urine Negative (Negative); Urine Blood Negative (Negative); Urine Ketones Negative (Negative); Urine Protein Negative (Neg-Trace)
[2024-12-11 11:50] LABS: Estimated Average Glucose 151 mg/dL; Hemoglobin A1c % 6.9 % (<6.0); Total Hemoglobin (HGBA1C) 3572.9873 umol/L
[2024-12-11 12:08] LABS: Creatinine Urine 20.49 mg/dL; Microalbumin Urine < 5.0 mg/L
[2024-12-11 12:10] LABS: Alanine Aminotransferase 18 U/L (0-40); Albumin Level 4.3 g/dL (3.5-5.0); Alkaline Phosphatase 79 U/L (39-117); Anion Gap 10 (12-20); Aspartate Amino Transferase 26 U/L (5-37); Bilirubin Total 0.3 mg/dL (0.0-1.0); Blood Urea Nitrogen 16 mg/dL (9-16); Calcium 9.4 mg/dL (8.4-10.2); Carbon Dioxide 29 mmol/L (22-29); Chloride 103 mmol/L (96-108); Cholesterol 178 mg/dL (<200); Estimated Glomerular Filt Rate > 60; Glucose Fasting 148 mg/dL (60-99); HDL Cholesterol 79 mg/dL (>40); LDL Cholesterol Calculated 80 mg/dL (<100); Potassium 4.4 mmol/L (3.3-5.1); Sodium 138 mmol/L (135-145); Total Protein 7.4 g/dL (6.5-8.0); Triglycerides 99 mg/dL (<150); Uric Acid 3.6 mg/dL (3.4-7.0)
[2024-12-11 12:33] LABS: Free T4 (Free Thyroxine) 0.98 ng/dL (0.71-1.85); Thyroid Stimulating Hormone 3.83 uIU/mL (0.32-4.0)
== END 2024-12-11 10:04 | disposition home or self-care (01) ==
LOC: HO.LAB 10:03
PROVIDERS: PCP Internal Medicine; Visit Provider Internal Medicine
DX: E78.00 Pure hypercholesterolemia, unspecified (principal); E03.9 Hypothyroidism, unspecified; M10.9 Gout, unspecified; E11.9 Type 2 diabetes mellitus without complications; E55.9 Vitamin D deficiency, unspecified; R30.0 Dysuria
CPT/HCPCS: 36415; 80053; 80061; 81003; 82043; 82306; 82570; 83036; 84439; 84443; 84550

== ENCOUNTER 2024-12-11 10:34 | Emergency (ER) | payer OTHER, SELFPAY ==
[2024-12-11 10:44] VITALS: BP 176/88; PULSE 68; RESP 18; TEMP 36.6; O2SAT 98; BMI 23.3
[2024-12-11 11:22] VITALS: BP 165/84; PULSE 74; RESP 20; TEMP 36.5; O2SAT 99
--- NOTE | 2024-12-11 11:22 | ED_ITS ---
HPI - Wound/Laceration General Chief Complaint: Wound/Laceration Stated Complaint: Removal of Stitches Time Seen by Provider: 12/11/24 11:21 Source: patient and RN notes reviewed Mode of arrival: ambulatory Limitations: no limitations History of Present Illness ED Provider: Hannah Luciano PA-C HPI narrative: This is a 63-year-old male, with a history of diabetes, who presents emergency department for suture removal. Patient reports that the sutures were tolerated well without any complications or concerns. He denies any drainage, increased redness, swelling, pain, fevers or chills. He had the sutures placed here in the emergency department on December 03, 2024. He has an appointment with his doctor on Tuesday. No other complaints or concerns at this time. Context: accidental Related Data Previous Rx's ?Medication ?Instructions ?Recorded allopurinol 300 mg tablet 300 mg PO DAILY 90 days #90 tabs 03/30/24 ibuprofen 600 mg tablet 600 mg PO DAILY PRN pain #30 tabs 08/10/24 levothyroxine 50 mcg tablet 50 mcg PO DAILY 90 days #90 tabs 08/10/24 metformin 500 mg tablet 500 mg PO BID 90 days #180 tabs 08/10/24 sildenafil 100 mg tablet 100 mg PO DAILY PRN sexual 08/10/24 activity #7 tabs Allergies Allergy/AdvReac Type Severity Reaction Status Date / Time No Known Allergies Allergy Verified 12/11/24 10:46 Review of Systems Review of Systems: Yes all other systems are reviewed and are negative [facility] Past Medical History Medical History (Updated 12/12/24 @ 00:01 by Yusef Sanford) Cervical disc disorder with radiculopathy Overweight (BMI 25.0-29.9) Mixed hyperlipidemia Smoker Erectile dysfunction Gout Acquired hypothyroidism Diabetes mellitus Surgical History No pertinent past surgical history Social History Social History Housing: Apartment Alcohol intake: current Alcohol intake frequency: a few times a week Patient Tobacco Use Status: Current someday Tobacco user Tobacco use type: Cigarette e-Cigarette/Vaping Use: Never Used Advance Directives: No Advance Directives Information Provided: No Do you have a plan to hurt others: No Plan service: Yes Current occupational status: unemployed Cognitive needs: No Hearing needs: No Vision needs: No Physical Exam Vital Signs: Vital Signs: Last Vital Signs Temp 97.7 F 12/11/24 11:30 Pulse 74 12/11/24 11:30 Resp 20 12/11/24 11:30 BP 165/84 H 12/11/24 11:30 Pulse Ox 99 12/11/24 11:30 O2 Del Method Room Air 12/11/24 11:30 BMI result Body Mass Index 23.3 Const: Other: General: Awake, alert, and oriented X3. No acute distress. HEENT: Normal inspection CVS: Normal heart rate and rhythm. Pulses normal. Respiratory: No respiratory distress Skin: Right elbow, posterior aspect, there are multiple lacerations, well healed with sutures in place. Slight wound dehiscence noted to laceration on extensor surface of forearm, no surrounding erythema, drainage or warmth. Dehiscence is approximately 1cm in length, 2mm in width. Extremities: Neuro: Oriented X 3. No motor deficit. No sensory deficit. Medical Decision Making Medical Decision Making MDM Narrative: 63 y/o M who presents to the ER for suture removal. 15 sutures removed from several lacerations. Pt tolerated procedure well. One laceration with slight dehiscence, steri strips applied. There are no areas of erythema or warmth. Well healing otherwise. Given return precautions. Stable for d/c. Differential Diagnosis Differential Diagnoses: The differential diagnosis associated with the presentation includes cellulitis, suture removal, wound check, wound dehiscence Discharge Plan Discharge Clinical Impression: Visit for suture removal Patient Disposition: Home, Self-Care Instructions: Stitches Removal (ED) Additional Instructions: You were seen in the ER for suture removal. One of your wounds was slightly open therefore we put steri-strips on your wound. Allow these to fall off on their own. Do not pick at wound Watch for any signs of infection including increased redness, swelling, drainage. You may wash wound with warm soap and water. If any of these occur please seek emergent care. Prescriptions: No Action allopurinol 300 mg tablet 300 mg PO DAILY 90 Days Qty: 90 3RF levothyroxine 50 mcg tablet 50 mcg PO DAILY 90 Days Qty: 90 1RF metformin 500 mg tablet 500 mg PO BID 90 Days Qty: 180 1RF sildenafil 100 mg tablet 100 mg PO DAILY PRN (Reason: sexual activity) Qty: 7 1RF ibuprofen 600 mg tablet 600 mg PO DAILY PRN (Reason: pain) Qty: 30 2RF Interventions: ED Discharge Assessment Last Done: 12/11/24 11:30 Discharge Date/Time: 12/11/24 11:31 Print Language: Italian
[2024-12-11 11:30] VITALS: BP 165/84; PULSE 74; RESP 20; TEMP 36.5; O2SAT 99
--- OUTSIDE RECORDS SUMMARY | 2024-12-11 12:42 | XMS_ITS | Clinical Summary ---
Author Organization [facility] Address [address] [place] [address] Care Team Providers Care Anthropology Faculty Member Name Role Phone Provider, Conversion Juan Luis [...] (03/10/2018): Added automatically from request for surgery [id number] Family History Medical History Relation Name Comments [...] age to complete this topic Care Teams Anthropology Faculty Member Relationship Specialty Start Date End Date Juan Luis Balderas MD [address] [place] [id number] PCP - General Internal Medicine 10/10/17 ProviderDamir MD 10/20/10
== END 2024-12-11 11:31 | disposition home or self-care (01) ==
PROVIDERS: Emergency Provider Emergency Medicine Emergency Medical Services; PCP Internal Medicine
DX: Z48.02 Encounter for removal of sutures (principal)
CPT/HCPCS: 99282

== ENCOUNTER 2024-12-14 13:35 | Outpatient (AMB) | payer OTHER, SELFPAY ==
[2024-12-14 13:56] VITALS: BP 136/82; PULSE 87; O2SAT 98; BMI 23.8
--- NOTE | 2024-12-14 13:56 | MHC.PC.OV ---
Vital Signs 12/14/24 13:56 Height 5 ft 6 in Weight 147 lb 6 oz BMI 23.8 BP 136/82 Blood Pressure Location Lt brachial Position Sitting Pulse 87 Pulse Source Pulse Oximeter Pulse Oximetry (%) 98 Oxygen Delivery Method Room Air Intake Visit Reasons: DM, hyperlipidemia, hypothyroidism Musician Instrumental Required: No Accompanied by: Self / Same As Patient Allergies No Known Allergies Allergy (Verified 12/14/24 14:34) Medication List - Last Reconciled 12/14/24 by Balwinder Roth MD allopurinol 300 mg PO DAILY 90 days ibuprofen 600 mg PO DAILY PRN levothyroxine 50 mcg PO DAILY 90 days metformin 500 mg PO BID 90 days sildenafil 100 mg PO DAILY PRN Tobacco use date assessed: 12/14/24 Dental Screening Dental Screen Date: 12/14/24 Did you have a dental visit in the last 12 months?: No Did you have a dental problem in the last 6 months where you did not have access to dental care?: No Was dental information given to patient?: Patient has dentist HPI DM, hyperlipidemia, hypothyroidism HPI Details Patient comes in today for his follow up visit States that he feels okay He denies any headaches or dizziness Denies any chest pains, no shortness of breath No nausea/vomiting, no abdominal pain No change in bowel habits noted He needs several of his Rx refilled today He had his follow-up labs done a few days ago - to discuss his results [facility] Medical History Cervical disc disorder with radiculopathy Overweight (BMI 25.0-29.9) Mixed hyperlipidemia Smoker Erectile dysfunction Gout Acquired hypothyroidism Diabetes mellitus Surgical History No pertinent past surgical history Social History Housing: Apartment Alcohol intake: current Alcohol intake frequency: a few times a week Patient Tobacco Use Status: Current someday Tobacco user Tobacco use type: Cigarette e-Cigarette/Vaping Use: Never Used service: Yes Current occupational status: unemployed Cognitive needs: No Hearing needs: No Vision needs: No Questionnaire PHQ-9 Over the last 2 weeks, how often have you been bothered by any of the following problems? 1. Little interest or pleasure in doing things: not at all 2. Feeling down, depressed, or hopeless: not at all 3. Trouble falling or staying asleep, or sleeping too much: not at all 4. Feeling tired or having little energy: not at all 5. Poor appetite or overeating: not at all 6. Feeling bad about yourself - or that you are a failure or have let yourself or your family down: not at all 7. Trouble concentrating on things, such as reading the newspaper or watching television: not at all 8. Moving or speaking so slowly that other people could have noticed. Or the opposite - being so fidgety or restless that you have been moving around a lot more than usual: not at all 9. Thoughts that you would be better off or of hurting yourself in some way: not at all Total score: 0 Depression Screening Interpretation: Negative Depression Screening Done: Yes 67290 - PHQ-9 Billing: Yes Source: Developed by Drs. Radames Swanson, Tiffany Landry, Librado Rincon and colleagues, with an educational jesus from [employer]. Thrive Questionnaire Date Thrive assessed: 12/14/24 I am a: Patient What is your living situation today?: I have a steady place to live Within the past 12 months, did the food you bought not last and you didn't have the money to get more?: Never true Within the past 12 months, did you worry whether your food would run out before you got money to buy more?: Never true Do you have trouble paying for medicines?: No Do you have trouble getting transportation to medical appointments?: No Do you have trouble paying your heating and electricity bill?: No Do you have trouble taking care of your child, family member or friend?: No Do you have trouble with day-to-day activities such as bathing, preparing meals, shopping, managing finances, etc.?: No Are you currently unemployed and looking for a job?: Yes Are you interested in more education?: No Please select the resources that you would like help with: None Currently or been in a relationship where the following occur: No concerns reported THRIVE Score: 0 AUDIT C Alcohol Use Questionnaire (AUDIT-C) 1. How often do you have a drink containing alcohol?: Monthly or less 2. How many drinks containing alcohol do you have on a typical day when you are drinking?: 3 or 4 3. How often do you have six or more drinks on one occasion?: Less than monthly Total Score: 3 Score Reviewed/Action Taken: Yes DORCAS-7 AMB Questionnaire DORCAS-7 Date DORCAS - 7 assessed: 12/14/24 Feeling nervous, anxious, or on edge: 0 = Not at all Not being able to stop or control worryin = Not at all Worrying too much about different things: 0 = Not at all Trouble relaxin = Not at all Being so restless that it is hard to sit still: 0 = Not at all Becoming easily annoyed or irritable: 0 = Not at all Feeling afraid as if something awful might happen: 0 = Not at all Total DORCAS-7 score (0-4 normal; 5-9 mild; 10-14 moderate; 15-21 severe): 0 Source: Developed by Drs. Radames Swanson, Tiffany Landry, Librado Rincon and colleagues, with an educational jesus from [employer]. Review of Systems Const Denies chills, Denies fatigue, Denies fever(s) and Denies headache(s) ENT Denies dysphagia, Denies dizziness, Denies otalgia, Denies headache(s), Reports neck pain (On and off), Denies odynophagia and Denies sore throat Card Denies chest pain, Denies palpitations and Denies dyspnea Resp Denies chest congestion, Denies cough and Denies dyspnea GI Denies abdominal pain, Denies constipation, Denies dysphagia, Denies heartburn, Denies diarrhea, Denies nausea, Denies odynophagia and Denies vomiting Reports erectile dysfunction (Rx helps), Denies dysuria, Denies nocturia and Denies urinary frequency Musc Denies back pain, Reports arthralgias (right shoulder) and Reports neck pain (On and off) Skin/Breast Denies rash Neuro Denies dizziness and Denies headache(s) Endo Denies fatigue and Denies palpitations Physical exam (Primary Care) Vital Signs: Last Vital Signs Pulse 87 12/14/24 13:56 BP 136/82 12/14/24 13:56 Pulse Ox 98 12/14/24 13:56 Oxygen Delivery Method Room Air 12/14/24 13:56 BMI result Body Mass Index 23.8 Tobacco/Smoking Status: Tobacco use Status Tobacco use date assessed 12/14/24 12/14/24 13:59 Patient Tobacco Use Status Current someday Tobacco 12/14/24 13:59 Tobacco use type Cigarette 12/14/24 13:59 e-Cigarette/Vaping Use Never Used 12/14/24 13:59 PHQ-9: PHQ-9 Score PHQ-9: Total score 0 12/14/24 14:35 Depression Screening Interpretation: Negative Thrive Assessment: Date of Thrive Assessment Date Thrive assessed 12/14/24 12/14/24 13:59 Currently or been in a relationship where the following occur: No concerns reported Const General: no acute distress and alert HENMT Ears: TM's normal bilaterally and EAC's normal Throat: Yes posterior oropharynx normal and Yes tonsils normal (no TP congestion) Neck Neck: Yes full ROM and No lymphadenopathy Thyroid: Thyroid normal Resp Auscultation: clear to auscultation bilaterally, no rales and no wheezes Cardio Rate: regular rate Rhythm: regular rhythm Heart sounds: no murmurs GI Palpation (GI): Soft to palpation and nontender Auscultation: normal bowel sounds General: Yes no CVA tenderness Back/Spine/Pelvis Back: no CVA tenderness Cervical Spine: Cervical spine tenderness (mild) Thoracic/Lumbar Spine: No lumbar spinal tenderness Skin Rashes: no rashes Extrem General: Yes no clubbing, cyanosis or edema Results Reviewed Results Reviewed: Laboratory Tests 12/11/24 12/11/24 10:19 10:25 Sodium 138 Potassium 4.4 Creatinine 0.78 Estimated GFR > 60 Fasting Glucose 148 H Hemoglobin A1c % 6.9 H Uric Acid 3.6 Calcium 9.4 AST 26 ALT 18 Triglycerides 99 Cholesterol 178 LDL Cholesterol, Calc 80 HDL Cholesterol 79 25-OH Vitamin D Total 72.0 TSH 3.83 Free T4 0.98 Ur Specific [place] 1.010 Urine Protein Negative Urine Glucose (UA) Negative Urine Blood Negative Urine Nitrite Negative Ur Leukocyte Esterase Negative Coding Level of Care Code Est Pt Level 4 (41094) Diagnoses Type 2 diabetes mellitus without complication, without long-term current use of insulin E11.9 Diabetes mellitus complication status: without complication Diabetes mellitus termite renewal inspector insulin use: without termite renewal inspector use Diabetes mellitus type: type 2 Mixed hyperlipidemia E78.2 Elevated blood pressure reading without diagnosis of hypertension R03.0 Acquired hypothyroidism E03.9 Gout, unspecified cause, unspecified chronicity, unspecified site M10.9 Chronicity: unspecified Gout etiology: unspecified cause Gout site: unspecified site Cervical disc disorder with radiculopathy M50.10 Erectile dysfunction, unspecified erectile dysfunction type N52.9 Erectile dysfunction type: unspecified Smoker F17.200 Overweight (BMI 25.0-29.9) E66.3 Additional Codes PHQ-9 - 14659 - PHQ-9 Billing: Yes ([id number]) Assessment & Plan Assessment & Plan (1) Diabetes mellitus: Code(s): E11.9 - Type 2 diabetes mellitus without complications Category: Medical Qualifiers: Diabetes mellitus complication status: without complication Diabetes mellitus half-way insulin use: without half-way use Diabetes mellitus type: type 2 Qualified Code(s): E11.9 - Type 2 diabetes mellitus without complications Plan: His HgbA1c was at 6.9% on his labs done a few days ago (was previously at 6.8% a few months ago) - goal is at least <7.0% Reinforced diabetic diet Continue Metformin 500 mg BID (2) Mixed hyperlipidemia: Code(s): E78.2 - Mixed hyperlipidemia Category: Medical Plan: Results of his labs done a few days ago reviewed and discussed with patient - his cholesterol levels have increased slightly from previous Reinforced low-cholesterol diet Will recheck his labs and fasting lipids in 4 months for follow-up (3) Elevated blood pressure reading without diagnosis of hypertension: Code(s): R03.0 - Elevated blood-pressure reading, without diagnosis of hypertension Category: Medical Plan: Reinforced low sodium diet Patient is reminded to continue monitoring his blood pressure regularly - his systolic BP should ideally be around 130 mm or less (4) Acquired hypothyroidism: Code(s): E03.9 - Hypothyroidism, unspecified Category: Medical Plan: His TFTs were normal on his recent labs Continue Levothyroxine 50 mcg QD Will recheck his TFTs again in 4 months for follow up (5) Gout: Code(s): M10.9 - Gout, unspecified Category: Medical Qualifiers: Chronicity: unspecified Gout etiology: unspecified cause Gout site: unspecified site Qualified Code(s): M10.9 - Gout, unspecified Plan: Reinforced low purine diet; states that he's had no acute flare ups of gout in a while now Patient's serum uric acid level is again normal on his recent labs Continue Allopurinol 300 mg QD (6) Cervical disc disorder with radiculopathy: Code(s): M50.10 - Cervical disc disorder with radiculopathy, unspecified cervical region Category: Medical Plan: Cervical spine MRI done in June 2023 revealed (+) mild anterolisthesis at C5-C6 and trace anterolisthesis at C3-C4 with discogenic degenerative changes and spondylosis at C6-C7, multilevel small central disc protrusions and disc osteophyte complexes without spinal cord impingement or significant spinal canal stenosis as well as 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, most apparent at C5-C6 and C6-C7 Right shoulder x-rays were unremarkable He was seen by orthopedics and was then referred to pain management Patient states that his shoulder symptoms have subsided a lot since and has not been bothering him as much lately and he prefers to hold off on seeing pain management or doing anything else for his neck and shoulder at this time (7) Erectile dysfunction: Code(s): N52.9 - Male erectile dysfunction, unspecified Category: Medical Qualifiers: Erectile dysfunction type: unspecified Qualified Code(s): N52.9 - Male erectile dysfunction, unspecified Plan: Continue Sildenafil 100 mg QD PRN (8) Smoker: Code(s): F17.200 - Nicotine dependence, unspecified, uncomplicated Category: Social Hx Plan: Patient is counseled again on smoking cessation - states that he is continuing to work on quitting smoking completely (9) Overweight (BMI 25.0-29.9): Code(s): E66.3 - Overweight Category: Medical Plan: Reinforced diet/exercise as tolerated/lose weight Plan Follow up in 4 months Orders: Orders Complete Blood Count Auto Diff 4 Months D64.9 - Anemia, unspecified Comprehensive Mobile. Panel Fast 4 Months E78.00 - Pure hypercholesterolemia, unspecified Lipid Panel 4 Months E78.00 - Pure hypercholesterolemia, unspecified Hemoglobin A1c 4 Months E11.9 - Type 2 diabetes mellitus without complications Thyroid Stimulating Hormone 4 Months E03.9 - Hypothyroidism, unspecified Free T4 (Free Thyroxine) 4 Months E03.9 - Hypothyroidism, unspecified Medications: Refilled metformin 500 mg PO BID 90 days 180 tabs 1RF E11.9 - Type 2 diabetes mellitus without complications sildenafil 100 mg PO DAILY PRN 7 tabs 1RF sexual activity allopurinol 300 mg PO DAILY 90 days 90 tabs 3RF M10.9 - Gout, unspecified levothyroxine 50 mcg PO DAILY 90 days 90 tabs 1RF
--- OUTSIDE RECORDS SUMMARY | 2024-12-14 14:06 | XMS_ITS | Clinical Summary ---
Author Organization [facility] Address [address] [place] [address] Care Team Providers Care Manager Membership Name Role Phone Provider, Conversion Juan Luis [...] (03/10/2018): Added automatically from request for surgery [id number] Family History Medical History Relation Name Comments [...] age to complete this topic Care Teams Manager Membership Relationship Specialty Start Date End Date Juan Luis Balderas MD [address] [place] [id number] PCP - General Internal Medicine 10/10/17 ProviderDamir MD 10/20/10
== END 2024-12-14 14:44 | disposition home or self-care (01) ==
PROVIDERS: PCP Internal Medicine; Visit Provider Internal Medicine
DX: E11.9 Type 2 diabetes mellitus without complications (principal); E78.2 Mixed hyperlipidemia; R03.0 Elevated blood-pressure reading, without diagnosis of hypertension; E03.9 Hypothyroidism, unspecified; M10.9 Gout, unspecified; M50.10 Cervical disc disorder with radiculopathy, unspecified cervical region; N52.9 Male erectile dysfunction, unspecified; F17.200 Nicotine dependence, unspecified, uncomplicated; E66.3 Overweight

== ENCOUNTER → 2024-12-14 13:35 | Outpatient (BNVA) | payer OTHER, SELFPAY | PROVIDERS: PCP Internal Medicine; Visit Provider Internal Medicine | DX: E11.9 Type 2 diabetes mellitus without complications (principal); E78.2 Mixed hyperlipidemia; R03.0 Elevated blood-pressure reading, without diagnosis of hypertension; E03.9 Hypothyroidism, unspecified; M50.10 Cervical disc disorder with radiculopathy, unspecified cervical region; N52.9 Male erectile dysfunction, unspecified; F17.200 Nicotine dependence, unspecified, uncomplicated; Z71.6 Tobacco abuse counseling | CPT/HCPCS: 96127; 99212 ==

== ENCOUNTER 2025-04-17 09:50 | Outpatient (REF) | payer OTHER, SELFPAY ==
[2025-04-17 10:03] LABS: MANUAL DIFF FLAG NO
[2025-04-17 10:39] LABS: Basophils Percent Auto 0.7 % (0-2); Eosinophils Absolute Auto 0.4 X10*3/uL (0.0-0.4); Eosinophils Percent Auto 7.1 % (0-4); Hematocrit 41.2 % (42.0-52.0); Hemoglobin 13.8 g/dl (14.0-18.0); Imm Gran Abs Auto 0.03 X10*3/uL (0.00-0.03); Imm Gran Pct Auto 0.5 % (0.0-0.4); Lymphocytes Absolute Auto 2.1 X10*3/uL (1.2-4.9); Mean Corpuscular HGB Conc 33.5 g/dl (31.0-36.0); Mean Corpuscular Hemoglobin 30.9 pg (27.0-33.0); Mean Corpuscular Volume 92.2 fL (80.0-98.0); Mean Platelet Volume 12.7 fL (9.4-12.4); Monocytes Absolute Auto 0.6 X10*3/uL (0.1-1.2); Monocytes Percent Auto 10.2 % (2-11); Neutrophils Absolute Auto 2.8 x10*3/uL (2.0-8.3); Neutrophils Percent Auto 46.5 % (45-73); Platelet Count 159 X10*3/uL (160-400); Red Blood Count 4.47 X10*6/uL (4.60-5.80); Red Cell Distribution Width 12.4 % (11.0-16.0); White Blood Count 6.1 X10*3/uL (4.8-10.8)
[2025-04-17 11:01] LABS: Estimated Average Glucose 140 mg/dL; Hemoglobin A1c % 6.5 % (<6.0)
--- OUTSIDE RECORDS SUMMARY | 2025-04-17 11:16 | XMS_ITS ---
Author Name [facility] Organization Unknown Encounters Encounter Type Encounter Reason Primary Diagnosis Location Date Ambulatory Cervicalgia [facility] 06/21/2022 Care Team Organization Name Specialty Phone Email Start Date End Da te [facility] REJI GALLEGO Primary Care 06/21/2022 06/21/2022 [facility] ANGEL GALLEGO Primary Care 06/21/2022
[2025-04-17 11:27] LABS: Alanine Aminotransferase 18 U/L (0-40); Albumin Level 4.1 g/dL (3.5-5.0); Alkaline Phosphatase 70 U/L (39-117); Anion Gap 13 (12-20); Aspartate Amino Transferase 32 U/L (5-37); Bilirubin Total 0.3 mg/dL (0.0-1.0); Blood Urea Nitrogen 13 mg/dL (9-16); Carbon Dioxide 24 mmol/L (22-29); Chloride 105 mmol/L (96-108); Cholesterol 183 mg/dL (<200); Estimated Glomerular Filt Rate > 60; Glucose Fasting 142 mg/dL (60-99); HDL Cholesterol 72 mg/dL (>40); LDL Cholesterol Calculated 79 mg/dL (<100); Potassium 3.9 mmol/L (3.3-5.1); Sodium 138 mmol/L (135-145); Total Protein 6.7 g/dL (6.5-8.0); Triglycerides 160 mg/dL (<150)
[2025-04-17 11:30] LABS: Free T4 (Free Thyroxine) 0.86 ng/dL (0.71-1.85); Thyroid Stimulating Hormone 4.51 uIU/mL (0.32-4.0)
== END 2025-04-17 09:51 | disposition home or self-care (01) ==
LOC: HO.LAB 09:50
PROVIDERS: PCP Internal Medicine; Visit Provider Internal Medicine
DX: D64.9 Anemia, unspecified (principal); E78.00 Pure hypercholesterolemia, unspecified; E11.9 Type 2 diabetes mellitus without complications; E03.9 Hypothyroidism, unspecified
CPT/HCPCS: 36415; 80053; 80061; 83036; 84439; 84443; 85025

== ENCOUNTER 2025-05-02 15:08 | Outpatient (AMB) | payer OTHER, SELFPAY ==
--- OUTSIDE RECORDS SUMMARY | 2025-05-02 15:12 | XMS_ITS ---
Author Name [facility] Organization Unknown Encounters Encounter Type Encounter Reason Primary Diagnosis Location Date Ambulatory Cervicalgia [facility] 06/21/2022 Care Team Organization Name Specialty Phone Email Start Date End Da te [facility] REJI GALLEGO Primary Care 06/21/2022 06/21/2022 [facility] ANGEL GALLEGO Primary Care 06/21/2022
--- OUTSIDE RECORDS SUMMARY | 2025-05-02 15:12 | XMS_ITS | Clinical Summary ---
Author Organization [facility] Address [address] [place] [address] Care Team Providers Care Laboratory Manager Name Role Phone Provider, Conversion MD Jenni Graya Juan Luis Krishna MD Primary Care Prov ider Unavailable Allergies No known active allergies Medications metFORMIN (GLUCOPHAGE) 500 MG tablet TK 1 T PO BID 4 02/10/2018 Active lisinopril (PRINIVIL,ZeSTR IL) 10 MG tablet TK 1 T PO QD 3 12/16/2017 Active allopurinol (ZYLOPRIM) 300 MG tablet TK 1 T PO QD 5 02/10/2018 Active PAZEO 0.7 % ophthalmic solution INSTILL 1 GTT INTO OU QD 5 03/11/2018 Active Active Problems Problem Noted Date Diagnosed Date Special screening for malignant neoplasms, colon 03/10/2018 Overview (03/10/2018): Added automatically from request for surgery [id number] Family History Medical History Relation Name Comments [...] Recorded Sex Assigned at Not on file Legal Sex Male 11:23 PM EDT Gender Identity Not on file Sexual Orientation Not on file Last Filed Vital Signs Vital Sign Reading Time Taken Comments Blood Pressure 141/67 03/17/2018 9:33 AM EDT Pulse 86 03/17/2018 9:33 AM EDT Temperature 36.6 C (97.8 F) 03/17/2018 8:03 AM EDT Respiratory Rate 18 03/17/2018 9:33 AM EDT [...] Zoster (Shingles) Vaccine (1 of 2) 2011 COVID-19 Vaccine (1 - 2023-2 5 season) 2024 Influenza Vaccine 05/24/2025 11/26/2021 Colonoscopy 03/17/2028 03/17/2018 RSV Vaccine 60 years and old er and Patients (1 - 1-dose 75+ series) 2036 Hepatitis B Vaccines Aged Out No long er eligible based on patient's age to complete this topic Insurance [facility] Care Teams Laboratory Manager Relationship Specialty Start Date End Date Juan Luis Balderas MD PCP - General Internal Medicine 10/10/17 ProviderDamir MD 10/20/10
[2025-05-02 15:18] VITALS: BP 130/86; PULSE 77; O2SAT 96; BMI 23.5
--- NOTE | 2025-05-02 15:18 | A.OFFPC_ITS ---
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[employer]iliaries Required: No Accompanied by: Self / Same As Patient Allergies No Known Allergies Allergy (Verified 05/02/25 15:47) Medication List - Last Reconciled 05/02/25 by Balwinder Roth MD allopurinol 300 mg PO DAILY 90 days ibuprofen 600 mg PO DAILY PRN levothyroxine 50 mcg PO DAILY 90 days metformin 500 mg PO BID 90 days sildenafil 100 mg PO DAILY PRN Tobacco use date assessed: 05/02/25 Dental Screening Dental Screen Date: 05/02/25 Did you have a dental visit in the last 12 months?: Yes Did you have a dental problem in the last 6 months where you did not have access to dental care?: No Was dental information given to patient?: Patient has dentist HPI 4 month f/u HPI Details Patient comes in today for his follow-up visit States that he feels okay He denies any headaches or dizziness Denies any chest pains, no shortness of breath No nausea/vomiting, no abdominal pain No change in bowel habits noted Needs a few of his Rx refilled today He had his follow-up labs done a couple of weeks ago - to discuss his results [facility] Medical History Cervical disc disorder with radiculopathy Overweight (BMI 25.0-29.9) Mixed hyperlipidemia Smoker Erectile dysfunction Gout Acquired hypothyroidism Diabetes mellitus Surgical History No pertinent past surgical history Social History Housing: Apartment Alcohol intake: current Alcohol intake frequency: a few times a week Patient Tobacco Use Status: Current someday Tobacco user Tobacco use type: Cigarette e-Cigarette/Vaping Use: Never Used service: Yes Current occupational status: unemployed Cognitive needs: No Hearing needs: No Vision needs: No Questionnaire PHQ-9 Over the last 2 weeks, how often have you been bothered by any of the following problems? 1. Little interest or pleasure in doing things: not at all 2. Feeling down, depressed, or hopeless: not at all 3. Trouble falling or staying asleep, or sleeping too much: several days 4. Feeling tired or having little energy: not at all 5. Poor appetite or overeating: not at all 6. Feeling bad about yourself - or that you are a failure or have let yourself or your family down: not at all 7. Trouble concentrating on things, such as reading the newspaper or watching television: not at all 8. Moving or speaking so slowly that other people could have noticed. Or the opposite - being so fidgety or restless that you have been moving around a lot more than usual: not at all 9. Thoughts that you would be better off or of hurting yourself in some way: not at all Total score: 1 Depression Screening Interpretation: Negative Depression Screening Done: Yes 45144 - PHQ-9 Billing: Yes Source: Developed by Drs. Radames Swanson, Tiffany Landry, Librado Rincon and colleagues, with an educational jesus from [employer]. Thrive Questionnaire Date Thrive assessed: 05/02/25 I am a: Patient What is your living situation today?: I have a steady place to live Within the past 12 months, did the food you bought not last and you didn't have the money to get more?: Never true Within the past 12 months, did you worry whether your food would run out before you got money to buy more?: Sometimes True Do you have trouble paying for medicines?: No Do you have trouble getting transportation to medical appointments?: No Do you have trouble paying your heating and electricity bill?: No Do you have trouble taking care of your child, family member or friend?: No Do you have trouble with day-to-day activities such as bathing, preparing meals, shopping, managing finances, etc.?: No Are you currently unemployed and looking for a job?: Yes Are you interested in more education?: I choose not to answer this question Please select the resources that you would like help with: Food and None Currently or been in a relationship where the following occur: No concerns reported THRIVE Score: 1 AUDIT C Alcohol Use Questionnaire (AUDIT-C) 1. How often do you have a drink containing alcohol?: Monthly or less 2. How many drinks containing alcohol do you have on a typical day when you are drinking?: 3 or 4 3. How often do you have six or more drinks on one occasion?: Less than monthly Total Score: 3 Score Reviewed/Action Taken: Yes DORCAS-7 AMB Questionnaire DORCAS-7 Date DORCAS - 7 assessed: 05/02/25 Feeling nervous, anxious, or on edge: 0 = Not at all Not being able to stop or control worryin = Not at all Worrying too much about different things: 0 = Not at all Trouble relaxin = Not at all Being so restless that it is hard to sit still: 0 = Not at all Becoming easily annoyed or irritable: 0 = Not at all Feeling afraid as if something awful might happen: 0 = Not at all Total DORCAS-7 score (0-4 normal; 5-9 mild; 10-14 moderate; 15-21 severe): 0 Source: Developed by Drs. Radames Swanson, Tiffany Landry, Librado Rincon and colleagues, with an educational jesus from [employer]. Review of Systems Const Denies chills, Denies fatigue, Denies fever(s) and Denies headache(s) ENT Denies dysphagia, Denies dizziness, Denies otalgia, Denies headache(s), Reports neck pain (On and off), Denies odynophagia and Denies sore throat Card Denies chest pain, Denies palpitations and Denies dyspnea Resp Denies chest congestion, Denies cough and Denies dyspnea GI Denies abdominal pain, Denies constipation, Denies dysphagia, Denies heartburn, Denies diarrhea, Denies nausea, Denies odynophagia and Denies vomiting Reports erectile dysfunction (Rx helps), Denies dysuria, Denies nocturia and Denies urinary frequency Musc Denies back pain, Reports arthralgias (right shoulder) and Reports neck pain (On and off) Skin/Breast Denies rash Neuro Denies dizziness and Denies headache(s) Endo Denies fatigue and Denies palpitations Physical exam (Primary Care) Vital Signs: Last Vital Signs Pulse 77 05/02/25 15:18 BP 130/86 05/02/25 15:18 Pulse Ox 96 05/02/25 15:18 Oxygen Delivery Method Room Air 05/02/25 15:18 BMI result Body Mass Index 23.5 Tobacco/Smoking Status: Tobacco use Status Tobacco use date assessed 05/02/25 05/02/25 15:27 Patient Tobacco Use Status Current someday Tobacco 05/02/25 15:20 Tobacco use type Cigarette 05/02/25 15:20 e-Cigarette/Vaping Use Never Used 05/02/25 15:20 PHQ-9: PHQ-9 Score PHQ-9: Total score 1 05/02/25 15:48 Depression Screening Interpretation: Negative Thrive Assessment: Date of Thrive Assessment Date Thrive assessed 05/02/25 05/02/25 15:27 Currently or been in a relationship where the following occur: No concerns reported Const General: no acute distress and alert HENMT Ears: TM's normal bilaterally and EAC's normal Throat: Yes posterior oropharynx normal and Yes tonsils normal (no TP congestion) Neck Neck: Yes full ROM and No lymphadenopathy Thyroid: Thyroid normal Resp Auscultation: clear to auscultation bilaterally, no rales and no wheezes Cardio Rate: regular rate Rhythm: regular rhythm Heart sounds: no murmurs GI Palpation (GI): Soft to palpation and nontender Auscultation: normal bowel sounds General: Yes no CVA tenderness Back/Spine/Pelvis Back: no CVA tenderness Cervical Spine: Cervical spine tenderness (mild) Thoracic/Lumbar Spine: No lumbar spinal tenderness Skin Rashes: no rashes Extrem General: Yes no clubbing, cyanosis or edema Results Reviewed Results Reviewed: Laboratory Tests 04/17/25 10:02 WBC 6.1 Hgb 13.8 L Hct 41.2 L Plt Count 159 L Sodium 138 Potassium 3.9 Creatinine 0.73 Estimated GFR > 60 Fasting Glucose 142 H Hemoglobin A1c % 6.5 H Calcium 9.0 AST 32 ALT 18 Triglycerides 160 H Cholesterol 183 LDL Cholesterol, Calc 79 HDL Cholesterol 72 TSH 4.51 H Free T4 0.86 Coding Level of Care Code Est Pt Level 4 (24543) Diagnoses Type 2 diabetes mellitus without complication, without long-term current use of insulin E11.9 Diabetes mellitus complication status: without complication 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 Diabetes mellitus type: type 2 Mixed hyperlipidemia E78.2 Elevated blood pressure reading without diagnosis of hypertension R03.0 Acquired hypothyroidism E03.9 Gout, unspecified cause, unspecified chronicity, unspecified site M10.9 Chronicity: unspecified Gout etiology: unspecified cause Gout site: unspecified site Cervical disc disorder with radiculopathy M50.10 Erectile dysfunction, unspecified erectile dysfunction type N52.9 Erectile dysfunction type: unspecified Smoker F17.200 Additional Codes PHQ-9 - 45993 - PHQ-9 Billing: Yes ([id number]) Assessment & Plan Assessment & Plan (1) Diabetes mellitus: Code(s): E11.9 - Type 2 diabetes mellitus without complications Category: Medical Qualifiers: Diabetes mellitus complication status: without complication Diabetes mellitus assisted insulin use: without regional intermodal truck driver use Diabetes mellitus type: type 2 Qualified Code(s): E11.9 - Type 2 diabetes mellitus without complications Plan: His HgbA1c was at 6.5% on his labs done a couple of weeks ago (was previously at 6.9% a few months ago) - goal is at least <7.0% Reinforced diabetic diet Continue Metformin 500 mg BID (2) Mixed hyperlipidemia: Code(s): E78.2 - Mixed hyperlipidemia Category: Medical Plan: Results of his labs done a couple of weeks ago reviewed and discussed with patient Reinforced low-cholesterol diet Will recheck his labs and fasting lipids in 4 months for follow-up (3) Elevated blood pressure reading without diagnosis of hypertension: Code(s): R03.0 - Elevated blood-pressure reading, without diagnosis of hypertension Category: Medical Plan: His blood pressure appears to have improved significantly from previous today Reinforced low sodium diet - goal is systolic BP of 120 mm or less Patient is reminded to continue monitoring his blood pressure regularly (4) Acquired hypothyroidism: Code(s): E03.9 - Hypothyroidism, unspecified Category: Medical Plan: His TFTs were normal on his recent labs Continue Levothyroxine 50 mcg QD Will recheck his TFTs again in 4 months for follow up (5) Gout: Code(s): M10.9 - Gout, unspecified Category: Medical Qualifiers: Chronicity: unspecified Gout etiology: unspecified cause Gout site: unspecified site Qualified Code(s): M10.9 - Gout, unspecified Plan: Reinforced low purine diet; states that he's had no acute flare ups of gout in a while now Patient's serum uric acid level was normal when last checked a few months ago Continue Allopurinol 300 mg QD (6) Cervical disc disorder with radiculopathy: Code(s): M50.10 - Cervical disc disorder with radiculopathy, unspecified cervical region Category: Medical Plan: Cervical spine MRI done in June 2023 revealed (+) mild anterolisthesis at C5-C6 and trace anterolisthesis at C3-C4 with discogenic degenerative changes and spondylosis at C6-C7, multilevel small central disc protrusions and disc osteophyte complexes without spinal cord impingement or significant spinal canal stenosis as well as 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, most apparent at C5-C6 and C6-C7 Right shoulder x-rays were unremarkable He was seen by orthopedics and was then referred to pain management Patient states that his shoulder symptoms have subsided a lot since and has not been bothering him as much lately and he prefers to continue to hold off on seeing pain management at this time (7) Erectile dysfunction: Code(s): N52.9 - Male erectile dysfunction, unspecified Category: Medical Qualifiers: Erectile dysfunction type: unspecified Qualified Code(s): N52.9 - Male erectile dysfunction, unspecified Plan: Continue Sildenafil 100 mg QD PRN (8) Smoker: Code(s): F17.200 - Nicotine dependence, unspecified, uncomplicated Category: Social Hx Plan: Patient is counseled again on smoking cessation - states that he is continuing to work on quitting smoking completely Plan Follow up in 4 months Orders: Orders Complete Blood Count Auto Diff 4 Months D64.9 - Anemia, unspecified Lipid Panel 4 Months E78.00 - Pure hypercholesterolemia, unspecified UA CC w/rflx Micro + Cult 4 Months R30.0 - Dysuria Free T4 (Free Thyroxine) 4 Months E03.9 - Hypothyroidism, unspecified Hemoglobin A1c 4 Months E11.9 - Type 2 diabetes mellitus without complications Comprehensive [place]. Panel Fast 4 Months E78.00 - Pure hypercholesterolemia, unspecified Microalbumin, Random (w Creat) 4 Months E11.9 - Type 2 diabetes mellitus without complications Vitamin D 25-OH Total 4 Months E55.9 - Vitamin D deficiency, unspecified Thyroid Stimulating Hormone 4 Months E03.9 - Hypothyroidism, unspecified Medications: Refilled levothyroxine 50 mcg PO DAILY 90 tabs 1RF 90 days metformin 500 mg PO BID 180 tabs 1RF 90 days E11.9 - Type 2 diabetes mellitus without complications ibuprofen 600 mg PO DAILY PRN 30 tabs 2RF pain
== END 2025-05-02 15:54 | disposition home or self-care (01) ==
LOC: HO.HMCH 15:09
PROVIDERS: PCP Internal Medicine; Visit Provider Internal Medicine
DX: E11.9 Type 2 diabetes mellitus without complications (principal); E78.2 Mixed hyperlipidemia; R03.0 Elevated blood-pressure reading, without diagnosis of hypertension; E03.9 Hypothyroidism, unspecified; M10.9 Gout, unspecified; M50.10 Cervical disc disorder with radiculopathy, unspecified cervical region; N52.9 Male erectile dysfunction, unspecified; F17.200 Nicotine dependence, unspecified, uncomplicated

== ENCOUNTER → 2025-05-02 15:08 | Outpatient (BNVA) | payer OTHER, SELFPAY | PROVIDERS: PCP Internal Medicine; Visit Provider Internal Medicine | DX: E11.9 Type 2 diabetes mellitus without complications (principal); E78.2 Mixed hyperlipidemia; R03.0 Elevated blood-pressure reading, without diagnosis of hypertension; E03.9 Hypothyroidism, unspecified; M10.9 Gout, unspecified; M50.10 Cervical disc disorder with radiculopathy, unspecified cervical region; N52.9 Male erectile dysfunction, unspecified; F17.210 Nicotine dependence, cigarettes, uncomplicated; D64.9 Anemia, unspecified; E78.00 Pure hypercholesterolemia, unspecified; R30.0 Dysuria; E55.9 Vitamin D deficiency, unspecified | CPT/HCPCS: 96127; 99212 ==

== ENCOUNTER 2025-09-03 10:21 | Outpatient (REF) | payer OTHER, SELFPAY ==
[2025-09-03 11:34] LABS: Appearance Urine Clear; Glucose Urine UA Negative (Negative); PH 6.0 (5.0-9.0); Specific Gravity - Urine 1.010 (1.005-1.025)
[2025-09-03 11:40] LABS: Hematocrit 44.9 % (42.0-52.0); Hemoglobin 14.7 g/dl (14.0-18.0); Imm Gran Abs Auto 0.05 X10*3/uL (0.00-0.03); Imm Gran Pct Auto 0.7 % (0.0-0.4); Lymphocytes Absolute Auto 1.7 X10*3/uL (1.2-4.9); MANUAL DIFF FLAG SCAN; Mean Corpuscular HGB Conc 32.7 g/dl (31.0-36.0); Mean Corpuscular Hemoglobin 31.1 pg (27.0-33.0); Mean Corpuscular Volume 94.9 fL (80.0-98.0); NRBC Abs Auto 0.000 X10*3/uL (0.0-0.012); NRBC Pct Auto 0.0 /100WBC (0.0-0.2); PLT CLUMP 1; Red Blood Count 4.73 X10*6/uL (4.60-5.80); SCAN SMEAR FLAG 1
--- OUTSIDE RECORDS SUMMARY | 2025-09-03 11:57 | XMS_ITS | Clinical Summary ---
Author Organization [facility] Address [address] [place] [address] Care Team Providers Care Branch Logistics Supervisor Name Role Phone Provider, Conversion Juan Luis Varela MD Primary Care Prov ider Allergies No known active allergies Medications metFORMIN [...] (03/10/2018): Added automatically from request for surgery [id number] Family History Medical History Relation Name Comments [...] 50+ (1 of 1 - PCV) 2011 RSV Vaccine 50 years and old er and Patients (1 - Risk 50-74 years 1-dose series) 2011 Zoster (Shingles) Vaccine (1 of 2) 2011 Influenza Vaccine 05/24/2025 11/26/2021 COVID-19 Vaccine ( - 2023-2 5 season) 2025 Colonoscopy 03/17/2028 03/17/2018 Hepatitis B Vaccines Aged Out No long er eligible based on patient's age to complete this topic Insurance [facility] Care Teams Branch Logistics Supervisor Relationship Specialty Start Date End Date Juan Luis Balderas MD PCP - General Internal Medicine 10/10/17 ProviderDamir MD 10/20/10
[2025-09-03 12:14] LABS: Alanine Aminotransferase 15 U/L (0-40); Albumin Level 4.5 g/dL (3.5-5.0); Alkaline Phosphatase 80 U/L (39-117); Anion Gap 15 (12-20); Aspartate Amino Transferase 38 U/L (5-37); Blood Urea Nitrogen 12 mg/dL (9-16); Calcium 9.5 mg/dL (8.4-10.2); Carbon Dioxide 25 mmol/L (22-29); Chloride 103 mmol/L (96-108); Cholesterol 195 mg/dL (<200); Estimated Glomerular Filt Rate > 60; HDL Cholesterol 75 mg/dL (>40); Potassium 4.5 mmol/L (3.3-5.1); Sodium 138 mmol/L (135-145); Total Protein 7.5 g/dL (6.5-8.0); Triglycerides 245 mg/dL (<150)
[2025-09-03 12:16] LABS: Platelet Count 152 X10*3/uL (160-400); White Blood Count 7.4 X10*3/uL (4.8-10.8)
[2025-09-03 12:38] LABS: Free T4 (Free Thyroxine) 0.92 ng/dL (0.71-1.85); Thyroid Stimulating Hormone 2.74 uIU/mL (0.32-4.0)
== END 2025-09-03 10:22 | disposition home or self-care (01) ==
LOC: HO.LAB 10:21
PROVIDERS: PCP Internal Medicine; Visit Provider Internal Medicine
DX: R30.0 Dysuria (principal); E11.9 Type 2 diabetes mellitus without complications; D64.9 Anemia, unspecified; E78.00 Pure hypercholesterolemia, unspecified; E03.9 Hypothyroidism, unspecified; E55.9 Vitamin D deficiency, unspecified
CPT/HCPCS: 36415; 80053; 80061; 81003; 82043; 82306; 82570; 83036; 84439; 84443; 85025

== ENCOUNTER 2025-09-06 14:22 | Outpatient (AMB) | payer OTHER, SELFPAY ==
[2025-09-06 14:34] VITALS: BP 142/80; PULSE 41; O2SAT 97; BMI 24.2
--- NOTE | 2025-09-06 14:34 | A.OFFPC_ITS ---
Vital Signs 09/06/25 14:34 09/06/25 15:26 Height 5 ft 6 in Weight 150 lb BMI 24.2 BP 142/80 H 140/80 H Blood Pressure Location Lt brachial Lt brachial Position Sitting Sitting Pulse 41 L Pulse Source Pulse Oximeter Pulse Oximetry (%) 97 Oxygen Delivery Method Room Air Intake Visit Reasons: DM, hyperlipidemia Solar Sales Representative Required: No Accompanied by: Self / Same As Patient Allergies No Known Allergies Allergy (Verified 09/06/25 15:22) Medication List - Last Reconciled 09/06/25 by Balwinder Roth MD allopurinol 300 mg PO DAILY 90 days ibuprofen 600 mg PO DAILY PRN levothyroxine 50 mcg PO DAILY 90 days metformin 500 mg PO BID 90 days sildenafil 100 mg PO DAILY PRN Tobacco use date assessed: 09/06/25 Dental Screening Dental Screen Date: 09/06/25 Did you have a dental visit in the last 12 months?: Yes Did you have a dental problem in the last 6 months where you did not have access to dental care?: No Was dental information given to patient?: Patient has dentist HPI DM, hyperlipidemia HPI Details Patient comes in today for his follow-up visit States that he feels okay He denies any headaches or dizziness Denies any chest pains, no shortness of breath No nausea/vomiting, no abdominal pain No change in bowel habits noted Needs a couple of his Rx refilled Adds that he already got his flu shot at his pharmacy last month He had his follow-up labs done a few days ago - to discuss his results [facility] Medical History Cervical disc disorder with radiculopathy Overweight (BMI 25.0-29.9) Mixed hyperlipidemia Smoker Erectile dysfunction Gout Acquired hypothyroidism Diabetes mellitus Surgical History No pertinent past surgical history Social History Housing: Apartment Alcohol intake: current Alcohol intake frequency: a few times a week Patient Tobacco Use Status: Current someday Tobacco user Tobacco use type: Cigarette e-Cigarette/Vaping Use: Never Used service: Yes Current occupational status: unemployed Cognitive needs: No Hearing needs: No Vision needs: No Questionnaire PHQ-9 Over the last 2 weeks, how often have you been bothered by any of the following problems? 1. Little interest or pleasure in doing things: not at all 2. Feeling down, depressed, or hopeless: not at all 3. Trouble falling or staying asleep, or sleeping too much: several days 4. Feeling tired or having little energy: not at all 5. Poor appetite or overeating: not at all 6. Feeling bad about yourself - or that you are a failure or have let yourself or your family down: not at all 7. Trouble concentrating on things, such as reading the newspaper or watching television: not at all 8. Moving or speaking so slowly that other people could have noticed. Or the opposite - being so fidgety or restless that you have been moving around a lot more than usual: not at all 9. Thoughts that you would be better off or of hurting yourself in some way: not at all Total score: 1 Depression Screening Interpretation: Negative Depression Screening Done: Yes 74938 - PHQ-9 Billing: Yes Source: Developed by Drs. Radames Swanson, Tiffany Landry, Librado Rincon and colleagues, with an educational jesus from [employer]. Thrive Questionnaire Date Thrive assessed: 09/06/25 I am a: Patient What is your living situation today?: I have a steady place to live Within the past 12 months, did the food you bought not last and you didn't have the money to get more?: Never true Within the past 12 months, did you worry whether your food would run out before you got money to buy more?: Sometimes True Do you have trouble paying for medicines?: No Do you have trouble getting transportation to medical appointments?: No Do you have trouble paying your heating and electricity bill?: No Do you have trouble taking care of your child, family member or friend?: No Do you have trouble with day-to-day activities such as bathing, preparing meals, shopping, managing finances, etc.?: No Are you currently unemployed and looking for a job?: Yes Are you interested in more education?: I choose not to answer this question Please select the resources that you would like help with: None Currently or been in a relationship where the following occur: No concerns reported THRIVE Score: 1 AUDIT C Alcohol Use Questionnaire (AUDIT-C) 1. How often do you have a drink containing alcohol?: Monthly or less 2. How many drinks containing alcohol do you have on a typical day when you are drinking?: 3 or 4 3. How often do you have six or more drinks on one occasion?: Less than monthly Total Score: 3 Score Reviewed/Action Taken: Yes DORCAS-7 AMB Questionnaire DORCAS-7 Date DORCAS - 7 assessed: 09/06/25 Feeling nervous, anxious, or on edge: 0 = Not at all Not being able to stop or control worryin = Not at all Worrying too much about different things: 0 = Not at all Trouble relaxin = Not at all Being so restless that it is hard to sit still: 0 = Not at all Becoming easily annoyed or irritable: 0 = Not at all Feeling afraid as if something awful might happen: 0 = Not at all Total DORCAS-7 score (0-4 normal; 5-9 mild; 10-14 moderate; 15-21 severe): 0 Source: Developed by Drs. Radames Swanson, Tiffany Landry, Librado Rincon and colleagues, with an educational jesus from [employer]. Review of Systems Const Denies chills, Denies fatigue, Denies fever(s) and Denies headache(s) ENT Denies dysphagia, Denies dizziness, Denies otalgia, Denies headache(s), Reports neck pain (on and off), Denies odynophagia and Denies sore throat Card Denies chest pain, Denies palpitations and Denies dyspnea Resp Denies chest congestion, Denies cough and Denies dyspnea GI Denies abdominal pain, Denies constipation, Denies dysphagia, Denies heartburn, Denies diarrhea, Denies nausea, Denies odynophagia and Denies vomiting Denies difficulty urinating, Reports erectile dysfunction (Rx helps), Denies dysuria, Denies nocturia and Denies urinary frequency Musc Denies back pain, Reports arthralgias (right shoulder) and Reports neck pain (on and off) Skin/Breast Denies rash Neuro Denies dizziness and Denies headache(s) Endo Denies fatigue and Denies palpitations Physical exam (Primary Care) Vital Signs: Last Vital Signs Pulse 41 L 09/06/25 14:34 BP 140/80 H 09/06/25 15:26 Pulse Ox 97 09/06/25 14:34 Oxygen Delivery Method Room Air 09/06/25 14:34 BMI result Body Mass Index 24.2 Tobacco/Smoking Status: Tobacco use Status Tobacco use date assessed 09/06/25 09/06/25 14:36 Patient Tobacco Use Status Current someday Tobacco 09/06/25 14:36 Tobacco use type Cigarette 09/06/25 14:36 e-Cigarette/Vaping Use Never Used 09/06/25 14:36 PHQ-9: PHQ-9 Score PHQ-9: Total score 1 09/06/25 15:23 Depression Screening Interpretation: Negative Thrive Assessment: Date of Thrive Assessment Date Thrive assessed 09/06/25 09/06/25 14:36 Currently or been in a relationship where the following occur: No concerns reported Const General: no acute distress and alert HENMT Ears: TM's normal bilaterally and EAC's normal Throat: Yes posterior oropharynx normal and Yes tonsils normal (no TP congestion) Neck Neck: No lymphadenopathy Thyroid: Thyroid normal Resp Auscultation: clear to auscultation bilaterally, no rales and no wheezes Cardio Rate: regular rate Rhythm: regular rhythm Heart sounds: no murmurs GI Palpation (GI): Soft to palpation and nontender Auscultation: normal bowel sounds General: Yes no CVA tenderness Back/Spine/Pelvis Back: no CVA tenderness Cervical Spine: Cervical spine tenderness (mild) Thoracic/Lumbar Spine: No lumbar spinal tenderness Skin Rashes: no rashes Extrem General: Yes no clubbing, cyanosis or edema Results Reviewed Results Reviewed: Laboratory Tests 09/03/25 09/03/25 10:32 10:49 WBC 7.4 Hgb 14.7 Hct 44.9 Plt Count 152 L Sodium 138 Potassium 4.5 Creatinine 0.85 Estimated GFR > 60 Fasting Glucose 152 H Hemoglobin A1c % 6.5 H Calcium 9.5 AST 38 H ALT 15 Alkaline Phosphatase 80 Triglycerides 245 H Cholesterol 195 LDL Cholesterol, Calc 71 HDL Cholesterol 75 25-OH Vitamin D Total 56.4 TSH 2.74 Free T4 0.92 Ur Specific [place] 1.010 Urine Protein Negative Urine Glucose (UA) Negative Urine Blood Negative Urine Nitrite Negative Ur Leukocyte Esterase Negative Coding Level of Care Code Est Pt Level 4 (12053) Diagnoses Type 2 diabetes mellitus without complication, without long-term current use of insulin E11.9 Diabetes mellitus type: type 2 Diabetes mellitus assistant terminal manager insulin use: without assistant terminal manager use Diabetes mellitus complication status: without complication Mixed hyperlipidemia E78.2 Elevated blood pressure reading without diagnosis of hypertension R03.0 Acquired hypothyroidism E03.9 Gout, unspecified cause, unspecified chronicity, unspecified site M10.9 Gout site: unspecified site Gout etiology: unspecified cause Chronicity: unspecified Cervical disc disorder with radiculopathy M50.10 Erectile dysfunction, unspecified erectile dysfunction type N52.9 Erectile dysfunction type: unspecified Smoker F17.200 Additional Codes PHQ-9 - 53640 - PHQ-9 Billing: Yes ([id number]) Assessment & Plan Assessment & Plan (1) Diabetes mellitus: Code(s): E11.9 - Type 2 diabetes mellitus without complications Category: Medical Qualifiers: Diabetes mellitus type: type 2 Diabetes mellitus assistant terminal manager insulin use: without assistant terminal manager use Diabetes mellitus complication status: without complication Qualified Code(s): E11.9 - Type 2 diabetes mellitus without complications Plan: His HgbA1c remains unchanged at 6.5% on his labs done a few days ago (was previously also at 6.5% a few months ago) - goal is at least <7.0% Reinforced diabetic diet Continue Metformin 500 mg BID - Rx refilled (2) Mixed hyperlipidemia: Code(s): E78.2 - Mixed hyperlipidemia Category: Medical Plan: Results of his labs done a few days ago reviewed and discussed with patient Reinforced low-cholesterol diet Will recheck his labs and fasting lipids in 4 months for follow-up (3) Elevated blood pressure reading without diagnosis of hypertension: Code(s): R03.0 - Elevated blood-pressure reading, without diagnosis of hypertension Category: Medical Plan: His blood pressure is still elevated, with his systolic BP at 140 mm when checked and rechecked today Reinforced low sodium diet - goal is systolic BP of 120 mm or less Patient is reminded to continue monitoring his blood pressure regularly (4) Acquired hypothyroidism: Code(s): E03.9 - Hypothyroidism, unspecified Category: Medical Plan: His TFTs were again normal on his recent labs done a few days ago Continue Levothyroxine 50 mcg QD - Rx refilled Will recheck his TFTs again in 4 months for follow up (5) Gout: Code(s): M10.9 - Gout, unspecified Category: Medical Qualifiers: Gout site: unspecified site Gout etiology: unspecified cause Chronicity: unspecified Qualified Code(s): M10.9 - Gout, unspecified Plan: Reinforced low purine diet; states that he's had no acute flare ups of gout in a while now Patient's serum uric acid level was normal when last checked a few months ago Continue Allopurinol 300 mg QD (6) Cervical disc disorder with radiculopathy: Code(s): M50.10 - Cervical disc disorder with radiculopathy, unspecified cervical region Category: Medical Plan: Cervical spine MRI done in June 2023 revealed (+) mild anterolisthesis at C5-C6 and trace anterolisthesis at C3-C4 with discogenic degenerative changes a nd spondylosis at C6-C7, multilevel small central disc protrusions and disc osteophyte complexes without spinal cord impingement or significant spinal canal stenosis as well as 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, most apparent at C5-C6 and C6-C7 Right shoulder x-rays were unremarkable He was seen by orthopedics and was then referred to pain management Patient states that his shoulder symptoms have subsided a lot since and has not been bothering him as much lately and he prefers to continue to hold off on seeing pain management at this time (7) Erectile dysfunction: Code(s): N52.9 - Male erectile dysfunction, unspecified Category: Medical Qualifiers: Erectile dysfunction type: unspecified Qualified Code(s): N52.9 - Male erectile dysfunction, unspecified Plan: Continue Sildenafil 100 mg QD PRN (8) Smoker: Code(s): F17.200 - Nicotine dependence, unspecified, uncomplicated Category: Social Hx Plan: Patient is counseled again on complete smoking cessation - states that he is continuing to work on quitting smoking completely Plan Follow up in 4 months Orders: Orders Comprehensive [place]. Panel Fast 4 Months E78.00 - Pure hypercholesterolemia, unspecified Lipid Panel 4 Months E78.00 - Pure hypercholesterolemia, unspecified Free T4 (Free Thyroxine) 4 Months E03.9 - Hypothyroidism, unspecified Vitamin D 25-OH Total 4 Months E55.9 - Vitamin D deficiency, unspecified UA CC w/rflx Micro + Cult 4 Months R30.0 - Dysuria Hemoglobin A1c 4 Months E11.9 - Type 2 diabetes mellitus without complications Complete Blood Count Auto Diff 4 Months D64.9 - Anemia, unspecified Microalbumin, Random (w Creat) 4 Months E11.9 - Type 2 diabetes mellitus without complications Thyroid Stimulating Hormone 4 Months E03.9 - Hypothyroidism, unspecified Uric Acid 4 Months M10.9 - Gout, unspecified Medications: Refilled levothyroxine 50 mcg PO DAILY 90 tabs 1RF 90 days metformin 500 mg PO BID 180 tabs 1RF 90 days E11.9 - Type 2 diabetes mellitus without complications
[2025-09-06 15:26] VITALS: BP 140/80
--- OUTSIDE RECORDS SUMMARY | 2025-09-06 21:21 | XMS_ITS | Clinical Summary ---
Author Organization [facility] Address [address] [place] [address] Care Team Providers Care Chief Underwriter Name Role Phone Provider, Conversion Juan Luis [...] (03/10/2018): Added automatically from request for surgery [id number] Family History Medical History Relation Name Comments [...] complete this topic Insurance [facility] Care Teams Chief Underwriter Relationship Specialty Start Date End Date Juan Luis Balderas MD PCP - General Internal Medicine 10/10/17 ProviderDamir MD 10/20/10
== END 2025-09-06 15:29 | disposition home or self-care (01) ==
LOC: HO.HMCH 14:23
PROVIDERS: PCP Internal Medicine; Visit Provider Internal Medicine
DX: E11.9 Type 2 diabetes mellitus without complications (principal); E78.2 Mixed hyperlipidemia; R03.0 Elevated blood-pressure reading, without diagnosis of hypertension; E03.9 Hypothyroidism, unspecified; M10.9 Gout, unspecified; M50.10 Cervical disc disorder with radiculopathy, unspecified cervical region; N52.9 Male erectile dysfunction, unspecified; F17.200 Nicotine dependence, unspecified, uncomplicated

== ENCOUNTER → 2025-09-06 14:22 | Outpatient (BNVA) | payer OTHER, SELFPAY | PROVIDERS: PCP Internal Medicine; Visit Provider Internal Medicine | DX: E11.9 Type 2 diabetes mellitus without complications (principal); E78.2 Mixed hyperlipidemia; R03.0 Elevated blood-pressure reading, without diagnosis of hypertension; E03.9 Hypothyroidism, unspecified; M10.9 Gout, unspecified; M50.10 Cervical disc disorder with radiculopathy, unspecified cervical region; N52.9 Male erectile dysfunction, unspecified; F17.210 Nicotine dependence, cigarettes, uncomplicated | CPT/HCPCS: 96127; 99212 ==